=== PATIENT | male | born 1960 | race Caucasian/White ===

== ENCOUNTER 2017-05-14 15:45 | Observation (INO) | payer SELFPAY ==
[~2017-05-14] VITALS: Ht 180.3 cm; Wt 78.1 kg
[2017-05-14 15:45] VITALS: BP 170/70; PULSE 97; RESP 18; TEMP 98.2; O2SAT 98
[~2017-05-14 15:45] MED LIST: ACET325S8 PO; ATEN-100 PO; IBUP600T26 PO; LISI-360 PO; LYRI150C PO; ZOCO40TA PO
[2017-05-14] MEDS ORDERED: IOHEXOL 350 MG/ML 10 ML VIAL (for RAD DIAG) IVCONTRAST ONE (15:46)
--- NOTE | 2017-05-14 16:11 | PD ---
HPI Chief Complaint: syncope Time Seen by Provider: 15:58 Travel History International Travel<30 days: No Contact w/Intl Traveler<30days: No Traveled to known affect area: No History of Present Illness HPI 56-year-old male with history of leukocytosis, CAD, cardiac stents, hypertension , hyperlipidemia, fibromyalgia, chronic back pain with lower extremity weakness , here for evaluation of headache and syncopal episode. The patient reports that he was in his kitchen about to bake something and that is the last thing he remembers. The next thing he remembered he was on the floor. He is unsure how much time he was on the floor for. He was able to call 911 for help. He now complains of lower back pain, neck pain, and headache. Headache is frontal and over his right temporal region. Patient reports that he has a headache almost every day which usually improve with Tylenol and ibuprofen. Shortly after waking up this morning he began to have a headache with gradual onset. Pain is now moderate. Neck pain is also moderate as well as his lower back pain , worse with movements and palpation, constant. He is unsure if he injured his back, however states he also has chronic everyday back pain. No paresthesias. No chest pain or dyspnea. He has had sweats at night, but no documented fever. He complains of some slight blurred vision and photophobia. 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) Immunizations Current: Yes Myocardial Infarction: Yes (X 7) Past Surgical History Appendectomy: Yes Cardiac Surgery: Yes (2 STENTS) Cholecystectomy: Yes Coronary Artery Bypass Graft: No Coronary Stent: Yes (X2) Social History Alcohol Use: No Tobacco Use: Yes (1/2 PPD) Substance Use: No Allergies-Medications (Allergen,Severity, Reaction): Coded Allergies: No Known Allergies (Unverified Adverse Reaction, Unknown, 05/14/17) Reported Meds & Prescriptions Reported Meds & Active Scripts Active Reported Famotidine 10 Mg Tab 10 Mg PO BID Vicodin (Hydrocodone-Acetaminophen) 5-300 Mg Tab 1 Tab PO Q6H PRN Tramadol (Tramadol HCl) 50 Mg Tab 50 Mg PO Q6H PRN Lyrica (Pregabalin) 150 Mg Cap 150 Mg PO BID Ibuprofen 600 Mg Tab 600 Mg PO TID Tylenol (Acetaminophen) 325 Mg Tab 650 Mg PO TID Review of Systems Except as stated in HPI: all other systems reviewed are Neg Physical Exam Narrative GENERAL: Well-developed, well-nourished, awake, alert, keeps eyes closed, no apparent distress. SKIN: Focused skin assessment warm/dry. HEAD: Atraumatic. Normocephalic. EYES: Pupils equal and round. No scleral icterus. No injection or drainage. ENT: Mucous membranes pink and moist. NECK: Trachea midline. No JVD. CARDIOVASCULAR: Regular rate and rhythm. Distal pulses brisk and equal bilaterally. No murmur. RESPIRATORY: No accessory muscle use. Clear to auscultation. Breath sounds equal bilaterally. GASTROINTESTINAL: Abdomen soft, non-tender, nondistended. MUSCULOSKELETAL: No obvious deformities. No clubbing. No cyanosis. No edema. Moderate midline cervical spine and lumbar spine tenderness without step-off. NEUROLOGICAL: Awake and alert. No obvious cranial nerve deficits. Motor grossly within normal limits. Normal speech. No focal deficits. PSYCHIATRIC: Appropriate mood and affect; insight and judgment normal. Data Data Last Documented VS Vital Signs Date Time Temp Pulse Resp B/P (MAP) Pulse Ox O2 Delivery O2 Flow Rate FiO2 05/14/17 16:43 62 18 132/67 (88) 95 Room Air 05/14/17 15:45 98.2 Orders Orders Electrocardiogram (05/14/17 16:04) Complete Blood Count With Diff (05/14/17 16:04) Comprehensive Metabolic Panel (05/14/17 16:04) Ckmb (Isoenzyme) Profile (05/14/17 16:04) Troponin I (05/14/17 16:04) Act Partial Throm Time (Ptt) (05/14/17 16:04) Prothrombin Time / Inr (Pt) (05/14/17 16:04) Urinalysis - C+S If Indicated (05/14/17 16:04) Chest, Single Ap (05/14/17 16:04) Ct Brain W/O Iv Contrast(Rout) (05/14/17 16:04) Ct Cerv Spine W/O Contrast (05/14/17 16:04) Ecg Monitoring (05/14/17 16:04) Iv Access Insert/Monitor (05/14/17 16:04) Oximetry (05/14/17 16:04) Sodium Chloride 0.9% Flush (Ns Flush) (05/14/17 16:15) Ct Thor Spine W/O Contrast (05/14/17 ) Ct Lumb Spine W/O Contrast (05/14/17 ) Ct Pulmonary Angiogram (05/14/17 ) Morphine Inj (Morphine Inj) (05/14/17 16:15) Metoclopramide Inj (Reglan Inj) (05/14/17 16:15) Aspirin Ec (Ecotrin Ec) (05/14/17 17:45) Iohexol 350 Inj (Omnipaque 350 Inj) (05/14/17 15:46) Urine Culture (05/14/17 17:45) Labs Laboratory Tests Test 05/14/17 16:20 05/14/17 17:45 White Blood Count 10.9 TH/MM3 Red Blood Count 3.97 MIL/MM3 Hemoglobin 12.8 GM/DL Hematocrit 38.9 % Mean Corpuscular Volume 98.2 FL Mean Corpuscular Hemoglobin 32.3 PG Mean Corpuscular Hemoglobin Concent 32.8 % Red Cell Distribution Width 11.9 % Platelet Count 210 TH/MM3 Mean Platelet Volume 7.6 FL Neutrophils (%) (Auto) 63.5 % Lymphocytes (%) (Auto) 26.1 % Monocytes (%) (Auto) 6.1 % Eosinophils (%) (Auto) 3.7 % Basophils (%) (Auto) 0.6 % Neutrophils # (Auto) 6.9 TH/MM3 Lymphocytes # (Auto) 2.8 TH/MM3 Monocytes # (Auto) 0.7 TH/MM3 Eosinophils # (Auto) 0.4 TH/MM3 Basophils # (Auto) 0.1 TH/MM3 CBC Comment DIFF FINAL Differential Comment Prothrombin Time 10.1 SEC Prothromb Time International Ratio 0.9 RATIO Activated Partial Thromboplast Time 26.6 SEC Blood Urea Nitrogen 21 MG/DL Creatinine 0.83 MG/DL Random Glucose 100 MG/DL Total Protein 7.7 GM/DL Albumin 3.8 GM/DL Calcium Level 8.5 MG/DL Alkaline Phosphatase 67 U/L Aspartate Amino Transf (AST/SGOT) 19 U/L Alanine Aminotransferase (ALT/SGPT) 26 U/L Total Bilirubin 0.5 MG/DL Sodium Level 141 MEQ/L Potassium Level 4.0 MEQ/L Chloride Level 109 MEQ/L Carbon Dioxide Level 24.3 MEQ/L Anion Gap 8 MEQ/L Estimat Glomerular Filtration Rate 95 ML/MIN Total Creatine Kinase 45 U/L Troponin I LESS THAN 0.02 NG/ML Urine Color YELLOW Urine Turbidity CLEAR Urine pH 6.0 Urine Specific [place] GREATER THAN 1.035 Urine Protein TRACE mg/dL Urine Glucose (UA) NEG mg/dL Urine Ketones NEG mg/dL Urine Occult Blood LARGE Urine Nitrite NEG Urine Bilirubin NEG Urine Leukocyte Esterase NEG Urine RBC 100-200 /hpf Urine WBC 9-14 /hpf Urine Squamous Epithelial Cells 0-5 /hpf Microscopic Urinalysis Comment CULTURE INDICATED MDM Medical Decision Making Medical Screen Exam Complete: Yes Emergency Medical Condition: Yes Medical Record Reviewed: Yes Interpretation(s) EKG: Sinus, rate 94, normal axis, normal intervals, low QRS full digits in precordial leads, no acute ischemic abnormality. Differential Diagnosis Syncope, dysrhythmia, anemia, metabolic abnormality, intracranial abnormality, vertebral injury, PE, ACS Narrative Course 4:45 PM: Patient began complaining of some substernal chest discomfort. Repeat EKG was performed and is unchanged from the first one. Vital signs show heart rate 622, blood pressure 132/67, pulse ox 95% on room air , oral temp of 98.2F. CBC: WBC 10.9, hemoglobin 12.8, hematocrit 38.9, platelets 210. CMP is unremarkable. Cardiac enzymes are negative. CT head: Negative exam. CT cervical spine: Negative trauma CT. CT lumbar spine: Negative trauma study. CT thoracic spine: No acute bony injury. Chest x-ray: No acute disease. CT pulmonary angiogram: CONCLUSION: 1. No evidence of pulmonary embolism. 2. Cardiac stent catheters are present. 3. No confluent infiltrates or effusions. 4. No evidence of fracture. Patient was made aware of all findings. He is resting comfortably. He was given a full aspirin given his chest pain while in the emergency department. Currently he is chest pain-free. States his head and back pain has improved with morphine and Reglan. States his aemt is Dr. Triplett. Given syncope with history of cardiac disease as well as chest pain, the patient will be admitted for overnight observation. Case discussed with hospitalist Dr. Day who will admit the patient to her service. Diagnosis Primary Impression: Syncope Qualified Codes: R55 - Syncope and collapse Additional Impression: Chest pain Qualified Codes: R07.9 - Chest pain, unspecified Admitting Information Admitting Physician Requests: Observation Catrachito Hager MD May 14, 2017 16:11
[2017-05-14] MEDS ORDERED: MORPHINE SULFATE 4 MG/ML INJ IV PUSH ONE (16:15)
[2017-05-14] MEDS ORDERED: METOCLOPRAMIDE HCL 10 MG/2 ML VIAL IV PUSH ONE (16:15)
[2017-05-14] MEDS ORDERED: SODIUM CHLORIDE 0.9% FLUSH 10 ML FLUSH IVF PRN (16:15)
[2017-05-14 16:28] LABS: AUTOMATED NEUTROPHIL # 6.9 TH/MM3 (1.8-7.7); BASOPHIL # 0.1 TH/MM3 (0-0.2); BASOPHIL % 0.6 % (0.0-2.0); EOSINOPHIL # 0.4 TH/MM3 (0-0.4); EOSINOPHIL % 3.7 % (0.0-4.0); HEMATOCRIT 38.9 % (39.0-51.0); HEMO FLAGS DIFF FINAL; LYMPH % 26.1 % (9.0-44.0); LYMPHOCYTE # 2.8 TH/MM3 (1.0-4.8); MEAN CELL VOLUME 98.2 FL (80.0-100.0); MEAN CORPUSCULAR HEMOGLOBIN 32.3 PG (27.0-34.0); MEAN CORPUSCULAR HGB CONC 32.8 % (32.0-36.0); MONO % 6.1 % (0.0-8.0); NEUT % 63.5 % (16.0-70.0); PLATELET COUNT 210 TH/MM3 (150-450); RED BLOOD COUNT 3.97 MIL/MM3 (4.50-5.90); RED CELL DISTRIBUTION WIDTH 11.9 % (11.6-17.2); WHITE BLOOD COUNT 10.9 TH/MM3 (4.0-11.0)
--- NOTE | 2017-05-14 16:29 | RADRPT ---
EXAM DATE/TIME: 05/14/2017 16:14 [facility] COMPARISON: CHEST SINGLE AP, December 26, 2015, 9:51. INDICATIONS : Chest pain and shortness of breath today. MEDICAL HISTORY : Myocardial infarction. Coronary artery disease. Fibromyalgia. SURGICAL HISTORY : Coronary stents. ENCOUNTER: Initial ACUITY: 1 day PAIN SCORE: 4/10 LOCATION: Bilateral chest FINDINGS: 2 AP portable erect views of the chest were obtained and demonstrate the lungs to be symmetrically ae rated without evidence of mass, infiltrate or effusion. The cardiomediastinal contours are unremarka ble. Osseous structures are intact. CONCLUSION: No acute disease. Espinoza Le MD on May 14, 2017 at 16:26 Board Certified Radiologist. This report was verified electronically.
[2017-05-14 16:34] LABS: CHLORIDE 109 MEQ/L (98-107); SODIUM (NA) 141 MEQ/L (136-145)
[2017-05-14] MEDS ORDERED: TYLE325T PO (16:34)
[2017-05-14] MEDS ORDERED: LYRI150C PO (16:34)
[2017-05-14] MEDS ORDERED: IBUP-232 PO (16:34)
[2017-05-14] MEDS ORDERED: HYDR-3111 PO (16:34)
[2017-05-14] MEDS ORDERED: TRAM50TA PO (16:34)
[2017-05-14] MEDS ORDERED: FAMO1TAB30 PO (16:34)
[2017-05-14 16:38] LABS: ANION GAP 8 MEQ/L (5-15); BICARBONATE 24.3 MEQ/L (21.0-32.0); BLOOD UREA NITROGEN 21 MG/DL (7-18)
[2017-05-14 16:40] LABS: APTT (PATIENT) 26.6 SEC (24.3-30.1); INTERNATIONAL NORMALIZED RATIO 0.9 RATIO; PROTHROMBIN TIME - PATIENT 10.1 SEC (9.8-11.6)
[2017-05-14 16:41] LABS: ALT (GPT) 26 U/L (12-78); AST (GOT) 19 U/L (15-37); GLOMERULAR FILTRATION RATE 95 ML/MIN (>89)
[2017-05-14 16:43] VITALS: BP 132/67; PULSE 62; RESP 18; O2SAT 95
[2017-05-14 16:43] LABS: TOTAL BILIRUBIN ADULT 0.5 MG/DL (0.2-1.0)
[2017-05-14 16:44] LABS: ALKALINE PHOSPHATASE 67 U/L (45-117)
[2017-05-14 16:45] LABS: CREATINE KINASE 45 U/L (39-308)
--- NOTE | 2017-05-14 17:20 | RADRPT ---
EXAM DATE/TIME: 05/14/2017 16:53 [facility] COMPARISON: CHEST SINGLE AP, May 14, 2017, 16:14. INDICATIONS : Trauma. Syncopal episode. Cephalgia, neck pain and low back pain. RADIATION DOSE: 66.76 CTDIvol (mGy) ; Tabletop CT Head MEDICAL HISTORY : Gastroesophageal reflux disease. Myocardial infarction. Hypertension.Leukocytosis. SURGICAL HISTORY : Coronary artery stent. ENCOUNTER: Initial ACUITY: 1 day PAIN SCALE: 5/10 LOCATION: Right cranial TECHNIQUE: Multiple contiguous axial images were obtained of the head. Using automated exposure control and adj ustment of the mA and/or kV according to patient size, radiation dose was kept as low as reasonably a chievable to obtain optimal diagnostic quality images. DICOM format image data is available electro nically for review and comparison. FINDINGS: CEREBRUM: The ventricles are normal for age. No evidence of midline shift, mass lesion, hemorrhage or acute in farction. No extra-axial fluid collections are seen. POSTERIOR FOSSA: The cerebellum and brainstem are intact. The 4th ventricle is midline. The cerebellopontine angle i s unremarkable. EXTRACRANIAL: The visualized portion of the orbits is intact. SKULL: The calvaria is intact. No evidence of skull fracture. CONCLUSION: Negative trauma CT Espinoza Le MD on May 14, 2017 at 17:17 Board Certified Radiologist. This report was verified electronically.
--- NOTE | 2017-05-14 17:25 | RADRPT ---
EXAM DATE/TIME: 05/14/2017 16:58 [facility] COMPARISON: No previous studies available for comparison. INDICATIONS : Trauma. Syncopal episode. Evaluate for pulmonary embolism. IV CONTRAST: 75 cc Omnipaque 350 (iohexol) IV RADIATION DOSE: 45 CTDIvol (mGy) MEDICAL HISTORY : Myocardial infarction. Gastroesophageal reflux disease. Hypertension.Leukocytosis. SURGICAL HISTORY : Coronary artery stent. ENCOUNTER: Initial ACUITY: 1 day PAIN SCALE: 0/10 LOCATION: chest TECHNIQUE: Volumetric scanning of the chest was performed using a pulmonary embolism protocol MIP images were re constructed. Using automated exposure control and adjustment of the mA and/or kV according to patien t size, radiation dose was kept as low as reasonably achievable to obtain optimal diagnostic quality images. DICOM format image data is available electronically for review and comparison. Follow-up recommendations for detected pulmonary nodules are based at a minimum on nodule size and pa tient risk factors according to Fleischner Society Guidelines. FINDINGS: PULMONARY ARTERIES: No filling defects are seen in the pulmonary arteries through the segmental level. LUNGS: There is no consolidation or pneumothorax . No concerning pulmonary nodule is visualized. PLEURAE: There is no pleural thickening or pleural effusion. MEDIASTINUM: There is good visualization of the great vessels of the middle mediastinum. No evidence of mediastin al or hilar adenopathy/mass. Cardiac stent catheters. MUSCULOSKELETAL: Within normal limits for patient age. MISCELLANEOUS: The visualized upper abdominal organs demonstrate no acute abnormality. The bony structures are intac t with no evidence of fracture. CONCLUSION: 1. No evidence of pulmonary embolism. 2. Cardiac stent catheters are present. 3. No confluent infiltrates or effusions. 4. No evidence of fracture. Espinoza Le MD on May 14, 2017 at 17:18 Board Certified Radiologist. This report was verified electronically.
--- NOTE | 2017-05-14 17:30 | RADRPT ---
EXAM DATE/TIME: 05/14/2017 16:53 [facility] COMPARISON: No previous studies available for comparison. INDICATIONS : Trauma. Syncopal episode. Cephalgia, neck pain and low back pain. RADIATION DOSE: 26.47 CTDIvol (mGy) MEDICAL HISTORY : Myocardial infarction. Gastroesophageal reflux disease. Hypertension.Leukosytosis. SURGICAL HISTORY : Coronary artery stent. ENCOUNTER: Initial ACUITY: 1 day PAIN SCALE: 5/10 LOCATION: Bilateral neck TECHNIQUE: Volumetric scanning of the cervical spine was performed. Multiplanar reconstructions in the sagittal, coronal and oblique axial planes were performed. Using automated exposure control and adjustment o f the mA and/or kV according to patient size, radiation dose was kept as low as reasonably achievable to obtain optimal diagnostic quality images. DICOM format image data is available electronically f or review and comparison. FINDINGS: The sagittal reconstructions demonstrate normal alignment and normal prevertebral soft tissues. The d ens is intact and there is a normal atlantoaxial relationship. The axial images demonstrate that the vertebral bodies and posterior elements are intact. The soft ti ssues are within normal limits. There is no evidence of acute fracture or malalignment. CONCLUSION: Negative trauma CT. Espinoza Le MD on May 14, 2017 at 17:26 Board Certified Radiologist. This report was verified electronically.
[2017-05-14] MEDS ORDERED: ASPIRIN EC 325 MG TABEC PO ONE (17:45)
[2017-05-14 17:48] LABS: BLOOD, URINE LARGE (NEG); GLUCOSE,URINE NEG (NEG); KETONE, URINE NEG (NEG); NITRITE,URINE NEG (NEG)
--- NOTE | 2017-05-14 17:54 | RADRPT ---
EXAM DATE/TIME: 05/14/2017 16:58 [facility] COMPARISON: CT LUMBAR SPINE W/O CONTRAST, July 19, 2014, 23:37. INDICATIONS : Trauma. Syncopal episode. RADIATION DOSE: 35.64 CTDIvol (mGy) ; Combined studies - Thoracic Spine/Lumbar Spine MEDICAL HISTORY : Myocardial infarction. Gastroesophageal reflux disease. Hypertension.Leukocytosis. SURGICAL HISTORY : Coronary artery stent. ENCOUNTER: Initial ACUITY: 1 day PAIN SCALE: 7/10 LOCATION: Lumbar spine. TECHNIQUE: Volumetric scanning of the lumbar spine was performed. Multiplanar reconstructions in the sagittal, coronal and oblique axial planes were performed. Using automated exposure control and adjustment of the mA and/or kV according to patient size, radiation dose was kept as low as reasonably achievable t o obtain optimal diagnostic quality images. DICOM format image data is available electronically for review and comparison. FINDINGS: VERTEBRAE: Normal vertebral body height. ALIGNMENT: No evidence of subluxation. T12-L1: The thecal sac has a normal diameter. No evidence of disc bulge or protrusion. The neural foramina are patent bilaterally. The axial images demonstrate that the vertebral bodies and posterior elements are intact. There is a mild scoliosis. The visualized portions of the upper sacrum and sacroiliac joints are intact. There i s a mild annular disc bulge at L4-5 with flattening of the anterior thecal sac. CONCLUSION: Negative trauma study. Espinoza Le MD on May 14, 2017 at 17:50 Board Certified Radiologist. This report was verified electronically.
--- NOTE | 2017-05-14 18:01 | RADRPT ---
EXAM DATE/TIME: 05/14/2017 16:58 [facility] COMPARISON: No previous studies available for comparison. INDICATIONS : Trauma. Syncopal episode. Cephalgia, neck pain and low back pain. RADIATION DOSE: 35.64 CTDIvol (mGy) ; Combined studies - Thoracic Spine/Lumbar Spine MEDICAL HISTORY : Myocardial infarction. Gastroesophageal reflux disease. Hypertension.Leukocytosis. SURGICAL HISTORY : Coronary artery stent. ENCOUNTER: Initial ACUITY: 1 day PAIN SCALE: 0/10 LOCATION: Thoracic spine. TECHNIQUE: Volumetric scanning of the thoracic spine was performed. Multiplanar reconstructions in the sagittal , coronal and oblique axial planes were performed. Using automated exposure control and adjustment o f the mA and/or kV according to patient size, radiation dose was kept as low as reasonably achievable to obtain optimal diagnostic quality images. DICOM format image data is available electronically f or review and comparison. FINDINGS: The thoracic spinal alignment is satisfactory. There is no evidence of thoracic spine fracture. No all ny canal or foraminal compromise is noted. There is slight degenerative change with tiny ventral endp late osteophytes at multiple levels in the thoracic spine. There is no evidence of paraspinal hematom a.. CONCLUSION: No acute bony injury in the thoracic spine Robby Lewis MD on May 14, 2017 at 17:57 Board Certified Radiologist. This report was verified electronically.
[2017-05-14 18:07] LABS: URINE COLOR YELLOW (YELLW/STRAW)
[2017-05-14 18:08] LABS: RBC, URINE 100-200 /hpf (0-3)
[2017-05-14 18:09] LABS: COMMENT (UR) CULTURE INDICATED; CULTURE IF INDICATED CULTURE INDICATED; SQUAMOUS EPITHELIAL CELL URINE 0-5 /hpf (0-5)
[2017-05-14 19:02] VITALS: BP 118/72; PULSE 58; RESP 16; O2SAT 96
[2017-05-14] MEDS ORDERED: TEMAZEPAM 15 MG CAP PO PRN (19:15)
[2017-05-14] MEDS ORDERED: SODIUM CHLORIDE 0.9% FLUSH 10 ML FLUSH IV FLUSH PRN (19:15)
[2017-05-14] MEDS ORDERED: NALOXONE HCL 0.4 MG/ML AMP IV PUSH PRN (19:15)
[2017-05-14] MEDS ORDERED: ACETAMINOPHEN/HYDROcodone 325 MG/5 MG TAB PO ONE (19:45)
[2017-05-14 19:48] LABS: CREATINE KINASE 62 U/L (39-308)
[2017-05-14 20:00] VITALS: BP 102/70; PULSE 54; RESP 18; TEMP 96.4; O2SAT 95
[2017-05-14] MEDS ORDERED: cefTRIAXone INJ 1,000 MG in SODIUM CHLORIDE 0.9% INJ 100 ML IV SCH (20:00)
[2017-05-14] MEDS: DOCUSATE SODIUM 50 MG/SENNA 8.6 MG TAB PO SCH (21:05)
[2017-05-14] MEDS: PREGABALIN 75 MG CAP PO SCH (21:05)
[2017-05-14] MEDS: SODIUM CHLORIDE 0.9% FLUSH 10 ML FLUSH IV FLUSH SCH (21:05)
[2017-05-15] VITALS: BP 102/66; PULSE 62; RESP 16; TEMP 97; O2SAT 94
[2017-05-15 02:09] LABS: CREATINE KINASE 65 U/L (39-308)
[2017-05-15] MEDS: ACETAMINOPHEN/HYDROcodone 325 MG/5 MG TAB PO PRN ×3 (06:09→18:43)
[2017-05-15 08:00] VITALS: BP 107/65; PULSE 58; RESP 16; TEMP 96.8; O2SAT 95
[2017-05-15] MEDS: DOCUSATE SODIUM 50 MG/SENNA 8.6 MG TAB PO SCH ×2 (09:00→20:52)
[2017-05-15] MEDS: SODIUM CHLORIDE 0.9% FLUSH 10 ML FLUSH IV FLUSH SCH ×2 (09:23→20:52)
[2017-05-15] MEDS: PREGABALIN 75 MG CAP PO SCH ×2 (09:23→20:52)
[2017-05-15 12:00] VITALS: BP 108/63; PULSE 59; RESP 16; TEMP 96.7; O2SAT 94
--- NOTE | 2017-05-15 13:44 | HHI.HP ---
[facility] Primary Care Physician No Primary Care Physician Admission Diagnosis Syncope, chest pain Diagnoses: (1) Syncope (2) HTN (hypertension) (3) Tobacco abuse (4) Hyperlipidemia Chief Complaint: Syncopal episode Travel History International Travel<30 Days: No Contact w/Intl Traveler <30 Da: No Traveled to Known Affected Are: No History of Present Illness Mr. Baumann is a 56-year-old male patient with a known medical history of CAD with [place] and stent placement, HTN, hyperlipidemia, fibromyalgia and chronic back pain who presented to the ED after a syncopal episode. Patient states that he was baking in the kitchen and fell to the ground. He does not remember any predisposing symptoms, denies any lightheadedness, dizziness or diplopia. Patient states that he woke up in the kitchen and immediately called 911. He denies any incontinence. He is unsure if he hit his head. Does admit to a headache. Denies any recent illness including chest pain, fever, chills, headache, sore throat, shortness of breath, ab pain, n/v/d or dysuria. Denies any new changes to medications, states he does not see a PCP. Does admit to a previous stress test years ago and followed with Dr. Fried but has not seen him for many years. Patient does admit to multiple syncopal episodes in the past with loss of consciousness and also at times incontinence of urine and stool. Has had a neurological work up 10 years ago but nothing since. Patient does complain of recent memory problems and forgetfulness as well as frequent headaches. Review of Systems Constitutional: DENIES: Fever, Chills Eyes: DENIES: Blurred vision Respiratory: DENIES: Cough, Snoring Cardiovascular: COMPLAINS OF: Syncope, DENIES: Chest pain Gastrointestinal: DENIES: Abdominal pain, Constipation, Diarrhea, Nausea, Vomiting Musculoskeletal: COMPLAINS OF: Back pain, Neck pain, DENIES: Joint pain Hematologic/lymphatic: DENIES: Bruising Neurologic: COMPLAINS OF: Headache Psychiatric: DENIES: Anxiety Except as stated in HPI: all other systems reviewed are Neg Past Family Social History Past Medical History CAD with history of [place] x 7 with 2 stent placement Dyslipidemia Chronic tinnitus Fibromyalgia GERD L3, L4, L5 chronic herniated discs with nerve displacement Past Surgical History Appendectomy Cholecystectomy Coronary stent placement x 2 Reported Medications Active Reported Famotidine 10 Mg Tab 10 Mg PO BID Vicodin (Hydrocodone-Acetaminophen) 5-300 Mg Tab 1 Tab PO Q6H PRN Tramadol (Tramadol HCl) 50 Mg Tab 50 Mg PO Q6H PRN Lyrica (Pregabalin) 150 Mg Cap 150 Mg PO BID Ibuprofen 600 Mg Tab 600 Mg PO TID Tylenol (Acetaminophen) 325 Mg Tab 650 Mg PO TID Allergies: Coded Allergies: No Known Allergies (Unverified Allergy, Unknown, 05/14/17) Active Ordered Medications Current Medications Medications (Trade) Dose Ordered Sig/Geovanna Route Start Time Stop Time Status Last Admin (NS Flush) 2 ml UNSCH PRN IV FLUSH 05/14/17 19:15 (NS Flush) 2 ml BID IV FLUSH 05/14/17 21:00 05/15/17 09:23 (Restoril) 15 mg HS PRN PO 05/14/17 19:15 (Narcan Inj) 0.4 mg UNSCH PRN IV PUSH 05/14/17 19:15 (Christie-Colace) 1 tab BID PO 05/14/17 21:00 Ceftriaxone Sodium 1000 mg/ Sodium Chloride 100 ml @ 200 mls/hr Q24H IV 05/14/17 20:00 05/14/17 21:05 (Garnett 5-325 Mg) 1 tab Q6H PRN PO 05/14/17 19:15 05/15/17 12:53 (Lyrica) 150 mg BID PO 05/14/17 21:00 05/15/17 09:23 Family History Patient is not aware of any of his family medical history. Social History Does admit to smoking 5-6 cigarettes per day since the age of 12. Denies any alcohol use. Denies any illicit drug use. Physical Exam Vital Signs Vital Signs Date Time Temp Pulse Resp B/P (MAP) Pulse Ox O2 Delivery O2 Flow Rate FiO2 05/15/17 12:00 96.7 59 16 108/63 (78) 94 05/15/17 08:00 96.8 58 16 107/65 (79) 95 05/15/17 00:00 97.0 62 16 102/66 (78) 94 05/14/17 20:01 56 96 05/14/17 20:00 96.4 54 18 102/70 (81) 95 05/14/17 19:02 58 16 118/72 (87) 96 05/14/17 16:43 62 18 132/67 (88) 95 Room Air 05/14/17 15:45 98 Room Air 05/14/17 15:45 98.2 97 18 170/70 (103) 98 05/14/17 15:45 97 98 Room Air Physical Exam GENERAL: This is a well-nourished, well-developed male patient, lying in bed in no apparent distress. SKIN: No rashes, ecchymoses or lesions. Warm and dry. HEENT: Atraumatic. Normocephalic. Pupils equal round and reactive. Extraocular motions intact. No scleral icterus. No injection or drainage. Nose without bleeding. Airway patent. NECK: Trachea midline. No JVD. Supple. CARDIOVASCULAR: Regular rate and rhythm without murmurs, gallops, or rubs. RESPIRATORY: Clear to auscultation. Breath sounds equal bilaterally. No wheezes , rales, or rhonchi. GASTROINTESTINAL: Abdomen soft, non-tender, nondistended. No guarding. MUSCULOSKELETAL: Extremities without clubbing, cyanosis, or edema. No joint tenderness, effusion, or edema noted. NEUROLOGICAL: Awake and alert. Cranial nerves II through XII intact. Motor and sensory grossly within normal limits. Five out of 5 muscle strength in all muscle groups. Normal speech. Laboratory Laboratory Tests Test 05/14/17 16:20 05/14/17 17:45 05/14/17 19:16 05/15/17 01:30 White Blood Count 10.9 Red Blood Count 3.97 Hemoglobin 12.8 Hematocrit 38.9 Mean Corpuscular Volume 98.2 Mean Corpuscular Hemoglobin 32.3 Mean Corpuscular Hemoglobin Concent 32.8 Red Cell Distribution Width 11.9 Platelet Count 210 Mean Platelet Volume 7.6 Neutrophils (%) (Auto) 63.5 Lymphocytes (%) (Auto) 26.1 Monocytes (%) (Auto) 6.1 Eosinophils (%) (Auto) 3.7 Basophils (%) (Auto) 0.6 Neutrophils # (Auto) 6.9 Lymphocytes # (Auto) 2.8 Monocytes # (Auto) 0.7 Eosinophils # (Auto) 0.4 Basophils # (Auto) 0.1 CBC Comment DIFF FINAL Differential Comment Prothrombin Time 10.1 Prothromb Time International Ratio 0.9 Activated Partial Thromboplast Time 26.6 Blood Urea Nitrogen 21 Creatinine 0.83 Random Glucose 100 Total Protein 7.7 Albumin 3.8 Calcium Level 8.5 Alkaline Phosphatase 67 Aspartate Amino Transf (AST/SGOT) 19 Alanine Aminotransferase (ALT/SGPT) 26 Total Bilirubin 0.5 Sodium Level 141 Potassium Level 4.0 Chloride Level 109 Carbon Dioxide Level 24.3 Anion Gap 8 Estimat Glomerular Filtration Rate 95 Total Creatine Kinase 45 62 65 Troponin I LESS THAN 0.02 LESS THAN 0.02 LESS THAN 0.02 Urine Color YELLOW Urine Turbidity CLEAR Urine pH 6.0 Urine Specific [place] GREATER THAN 1.035 Urine Protein TRACE Urine Glucose (UA) NEG Urine Ketones NEG Urine Occult Blood LARGE Urine Nitrite NEG Urine Bilirubin NEG Urine Leukocyte Esterase NEG Urine RBC 100-200 Urine WBC 9-14 Urine Squamous Epithelial Cells 0-5 Microscopic Urinalysis Comment CULTURE INDICATED Date/Time Source Procedure Growth Status 05/14/17 17:45 Urine Clean Catch Urine Culture - Preliminary NO GROWTH IN 24 HOURS. Resulted Result Diagram: 05/14/17 1620 05/14/17 1620 Imaging Last Impressions Head CT 05/14/17 1604 Signed Impressions: Service Date/Time: April 16:53 - CONCLUSION: Negative trauma CT Espinoza Le MD Chest X-Ray 05/14/17 1604 Signed Impressions: Service Date/Time: April 16:14 - CONCLUSION: No acute disease. Espinoza Le MD Cervical Spine CT 05/14/17 1604 Signed Impressions: Service Date/Time: April 16:53 - CONCLUSION: Negative trauma CT. Espinoza Le MD Thoracic Spine CT 05/14/17 0000 Signed Impressions: Service Date/Time: April 16:58 - CONCLUSION: No acute bony injury in the thoracic spine Robby Lewis MD Lumbar Spine CT 05/14/17 0000 Signed Impressions: Service Date/Time: April 16:58 - CONCLUSION: Negative trauma study. Espinoza Le MD CT Angiography 05/14/17 0000 Signed Impressions: Service Date/Time: April 16:58 - CONCLUSION: 1. No evidence of pulmonary embolism. 2. Cardiac stent catheters are present. 3. No confluent infiltrates or effusions. 4. No evidence of fracture. MD Rishabh Guajardoi VTE Risk Assessment Caprini VTE Risk Assessment: No/Low Risk (score <= 1) Caprini Risk Assessment Model Point Value = 1 Point Value = 2 Point Value = 3 Point Value = 5 Age 41-60 Minor surgery BMI > 25 kg/m2 Swollen legs Varicose veins or History of unexplained or recurrent spontaneous Oral contraceptives or hormone replacement Sepsis (< 1 month) Serious lung disease, including pneumonia (< 1 month) Abnormal pulmonary function Acute myocardial infarction Congestive heart failure (< 1 month) History of inflammatory bowel disease Medical patient at bed rest Age 61-74 Arthroscopic surgery Major open surgery (> 45 min) Laparoscopic surgery (> 45 min) Malignancy Confined to bed (> 72 hours) Immobilizing plaster cast Central venous access Age >= 75 History of VTE Family history of VTE Factor V Leiden Prothrombin [id number] Lupus anticoagulant Anticardiolipin antibodies Elevated serum homocysteine Heparin-induced thrombocytopenia Other congenital or acquired thrombophilia Stroke (< 1 month) Elective arthroplasty Hip, pelvis, or leg fracture Acute spinal cord injury (< 1 month) Prophylaxis Regimen Total Risk Factor Score Risk Level Prophylaxis Regimen 0-1 Low Early ambulation 2 Moderate Order ONE of the following: *Sequential Compression Device (SCD) *Heparin 5000 units SQ BID 3-4 Higher Order ONE of the following medications: *Heparin 5000 units SQ TID *Enoxaparin/Lovenox 40 mg SQ daily (WT < 150 kg, CrCl > 30 mL/min) *Enoxaparin/Lovenox 30 mg SQ daily (WT < 150 kg, CrCl > 10-29 mL/min) *Enoxaparin/Lovenox 30 mg SQ BID (WT < 150 kg, CrCl > 30 mL/min) AND/OR *Sequential Compression Device (SCD) 5 or more Highest Order ONE of the following medications: *Heparin 5000 units SQ TID (Preferred with Epidurals) *Enoxaparin/Lovenox 40 mg SQ daily (WT < 150 kg, CrCl > 30 mL/min) *Enoxaparin/Lovenox 30 mg SQ daily (WT < 150 kg, CrCl > 10-29 mL/min) *Enoxaparin/Lovenox 30 mg SQ BID (WT < 150 kg, CrCl > 30 mL/min) AND *Sequential Compression Device (SCD) Assessment and Plan Problem List: (1) Syncope ICD Code: R55 - Syncope and collapse Status: Acute Plan: Serial EKGs and serial troponins have been ordered for ruling out ACS purposes. Will start on low dose aspirin. ECHO reviewed showing reduced EF 45%. Consult cardiology for BP recommendations, patient's BP is on the lower end, may not tolerate, appreciate recommendations. Also does not have insurance to follow up outpatient. Will obtain orthostatic BPs, monitor trends. Patient may possibly have orthostatic BP which led to his syncope. Follow. Continue cardiac telemetry, monitor for presence of arrhythmias. Complaint of headache, neck pain and back pain since fall, control pain, Garnett available PRN as needed. Continue home Lyrica Lipid profile ordered and pending. EKG reviewed showing NSR heart rate controlled, no ST changes to indicate ischemia. CBC and BMP reviewed which are essentially unremarkable. CXR reviewed showing no acute disease. Head CT, cervical spine CT, lumbar CT, thoracic spine CT all reviewed which was negative. CT angiogram reviewed showing no evidence of PE. No infiltrates or effusions. No fracture. Will consult neurology for frequent syncopal episodes with intermittent incontinence, frequent headaches and forgetfulness. Appreciate recommendations. EEG ordered to rule out possibility of seizures. (2) HTN (hypertension) ICD Code: I10 - Hypertension Status: Acute Plan: BP well controlled. Monitor trends. (3) Hyperlipidemia ICD Code: E78.5 - Hyperlipidemia Status: Acute Plan: Will check lipid panel. Patient is not currently taking anything for dyslipidemia but reports a history of. Follow. (4) Tobacco abuse ICD Code: Z72.0 - Tobacco abuse Status: Acute Plan: Patient counselled and encouraged cessation. DVT prophylaxis: SCDs. (5) Abnormal urinalysis ICD Code: R82.90 - Unspecified abnormal findings in urine Plan: UA showing presence of WBC. Urine culture NGTD. Will dc ceftriaxone. Problem Qualifiers (1) Syncope: Qualified Codes: R55 - Syncope and collapse Marybeth Velasco May 15, 2017 13:44
--- NOTE | 2017-05-15 15:22 | ECHRPT ---
Indication: cad CONCLUSIONS Normal left ventricular size. Wall thickness is normal. The left ventricular systolic function is cbnvwtbg-or-cjpqwuy reduced with an estimated ejection fra ction in the range of 40-45%. Zxvvf-dk-qnie mitral valve regurgitation. There is mild tricuspid valve regurgitation. The estimated pulmonary arterial pressure is 42.7 mmHg. BP: / HR: Rhythm: MEASUREMENTS (Male / Female) Normal Values Technical Quality:Good 2D ECHO LV Diastolic Diameter PLAX 4.6 cm 4.2 - 5.9 / 3.9 - 5.3 cm LV Systolic Diameter PLAX 3.9 cm IVS Diastolic Thickness 0.9 cm 0.6 - 1.0 / 0.6 - 0.9 cm LVPW Diastolic Thickness 0.8 cm 0.6 - 1.0 / 0.6 - 0.9 cm LV Relative Wall Thickness 0.4 RV Internal Dim ED PLAX 3.8 cm LV Ejection Fraction MOD 4C 37.8 % LV Ejection Fraction 4C AL 39.3 % M-MODE Aortic Root Diameter MM 3.3 cm LA Systolic Diameter MM 4.2 cm LA Ao Ratio MM 1.3 AV Cusp Separation MM 2.1 cm DOPPLER Mitral E Point Velocity 61.2 cm/s Mitral A Point Velocity 69.6 cm/s Mitral E to A Ratio 0.9 LV E' Lateral Velocity 10.1 cm/s Mitral E to LV E' Lateral Ratio 6.1 LV E' Septal Velocity 10.5 cm/s Mitral E to LV E' Septal Ratio 5.8 TR Peak Velocity 286.0 cm/s TR Peak Gradient 32.7 mmHg Right Atrial Pressure 10.0 mmHg Pulmonary Artery Systolic Pressu 42.7 mmHg Right Ventricular Systolic Press 42.7 mmHg FINDINGS LEFT VENTRICLE Normal left ventricular size. Wall thickness is normal. The left ventricular systolic function is wathfeuz-do-fotsjgs reduced with an estimated ejection fra ction in the range of 35-40%. RIGHT VENTRICLE Normal right ventricular size and systolic function. LEFT ATRIUM The left atrial size is normal. RIGHT ATRIUM The right atrial size is normal. ATRIAL SEPTUM Normal atrial septal thickness without atrial level shunting by limited color doppler interrogation. AORTA The aortic root and proximal ascending aorta are normal in size on limited imaging. MITRAL VALVE Structurally normal mitral valve. Onnli-il-tocg mitral valve regurgitation. AORTIC VALVE Trileaflet aortic valve. No aortic valve stenosis or regurgitation. TRICUSPID VALVE Structurally normal tricuspid valve. There is mild tricuspid valve regurgitation. The estimated pulmonary arterial pressure is 42.7 mmHg. PULMONARY VALVE No pulmonary valve regurgitation or stenosis. VESSELS The inferior vena cava is normal in size. PERICARDIUM No pericardial effusion. Jose Turner MD (Electronically Signed) Final Date:15 May 2017 15:20
[2017-05-15 16:00] VITALS: BP_SYST 106; BP_SYST 108; BP_SYST 120; BP_DIAS 60; BP_DIAS 66; BP_DIAS 68; PULSE 59; RESP 14; TEMP 97.1; O2SAT 95
--- NOTE | 2017-05-15 16:19 | EKG ---
Date Performed: 05/14/2017 Time Performed: 15:53:08 PTAGE: 56 years EKG: Sinus rhythm LOW QRS VOLTAGE IN PRECORDIAL LEADS Since previous tracing, no significant change noted BORDERLINE E CG PREVIOUS TRACING : 12/26/2015 15.51 DOCTOR: Megha Alexandra Interpretating Date/Time 05/15/2017 16:18:43
--- NOTE | 2017-05-15 16:21 | EKG ---
Date Performed: 05/14/2017 Time Performed: 16:45:04 PTAGE: 56 years EKG: Sinus rhythm POSSIBLE RIGHT VENTRICULAR CONDUCTION DELAY Since previous tracing, no significant change noted GISELE FERRER ECG PREVIOUS TRACING : 05/14/2017 15.53 DOCTOR: Megha Alexandra Interpretating Date/Time 05/15/2017 16:19:55
[2017-05-15 17:07] LABS: HDL CHOLESTEROL 25.3 MG/DL (40.0-60.0)
--- NOTE | 2017-05-15 17:13 | PD.CONS ---
HPI Consult Requested By Primary Care Physician No Primary Care Physician History of Present Illness 56-year-old male patient with a known medical history of CAD with [place] and stent placement, HTN, hyperlipidemia, fibromyalgia and chronic back pain who presented to the ED after a syncopal episode. Patient states that he was baking in the kitchen and fell to the ground. He does not remember any predisposing symptoms, denies any lightheadedness, dizziness or diplopia. Patient states that he woke up in the kitchen and immediately called 911. He denies any incontinence. He is unsure if he hit his head. Does admit to a headache. Denies any recent illness including chest pain, fever, chills, headache, sore throat, shortness of breath, ab pain, n/v/d or dysuria. Denies any new changes to medications, states he does not see a PCP. Does admit to a previous stress test years ago and followed with Dr. Fried but has not seen him for many years. Patient does admit to multiple syncopal episodes in the past with loss of consciousness and also at times incontinence of urine and stool. Has had a neurological work up 10 years ago but nothing since. Patient does complain of recent memory problems and forgetfulness as well as frequent headaches. Review of Systems Consitutional: DENIES: Fatigue, Fever, Chills, Weight gain, Weight loss Eyes: DENIES: Amaurosis Fugax, Change in vision HEENT: DENIES: Lightheadedness, Change in hearing Respiratory: DENIES: See HPI, Cough, Snoring, Shortness of breath, Wheezing, Sputum production Cardiovascular: DENIES: See HPI, Chest pain, Palpitations, Syncope, Tachycardia Gastrointestinal: DENIES: Nausea, Vomiting, Change in bowel habits, Reflux, Bloody stools, Melena Genitourinary: DENIES: Urinary incontinence, Difficulty voiding Integumentary: DENIES: Rash Neurologic: DENIES: Tingling or numbness, Memory problems, Poor Balance, Stroke symptoms Musculoskeletal: DENIES: Joint pain, Muscle pain, Limited range of motion, Back pain Psychiatric: DENIES: Anxiety, Depression, Sleep disturbances Hematologic: DENIES: Bruising tendencies, Bleeding tendencies Endocrine: DENIES: Weight gain, Weight loss, Thyroid disease Past Family Social History Allergies: Coded Allergies: No Known Allergies (Unverified Allergy, Unknown, 05/14/17) Past Medical History CAD with history of [place] x 7 with 2 stent placement Dyslipidemia Chronic tinnitus Fibromyalgia GERD L3, L4, L5 chronic herniated discs with nerve displacement Past Surgical History Appendectomy Cholecystectomy Coronary stent placement x 2 Reported Medications Reported Meds & Active Scripts Active Reported Famotidine 10 Mg Tab 10 Mg PO BID Vicodin (Hydrocodone-Acetaminophen) 5-300 Mg Tab 1 Tab PO Q6H PRN Tramadol (Tramadol HCl) 50 Mg Tab 50 Mg PO Q6H PRN Lyrica (Pregabalin) 150 Mg Cap 150 Mg PO BID Ibuprofen 600 Mg Tab 600 Mg PO TID Tylenol (Acetaminophen) 325 Mg Tab 650 Mg PO TID Active Ordered Medications Current Medications Medications (Trade) Dose Ordered Sig/Geovanna Route Start Time Stop Time Status Last Admin (NS Flush) 2 ml UNSCH PRN IV FLUSH 05/14/17 19:15 (NS Flush) 2 ml BID IV FLUSH 05/14/17 21:00 05/15/17 09:23 (Restoril) 15 mg HS PRN PO 05/14/17 19:15 (Narcan Inj) 0.4 mg UNSCH PRN IV PUSH 05/14/17 19:15 (Christie-Colace) 1 tab BID PO 05/14/17 21:00 (Caro 5-325 Mg) 1 tab Q6H PRN PO 05/14/17 19:15 05/15/17 12:53 (Lyrica) 150 mg BID PO 05/14/17 21:00 05/15/17 09:23 (Aspirin Chew) 81 mg DAILY CHEW 05/15/17 14:00 Family History Patient is not aware of any of his family medical history. Social History Does admit to smoking 5-6 cigarettes per day since the age of 12. Denies any alcohol use. Denies any illicit drug use. Physical Exam Vital Signs Vital Signs Date Time Temp Pulse Resp B/P (MAP) Pulse Ox O2 Delivery O2 Flow Rate FiO2 05/15/17 16:00 97.1 59 14 120/66 (84) 95 106/60 (75) 108/68 (81) 05/15/17 14:26 14 05/15/17 12:00 96.7 59 16 108/63 (78) 94 05/15/17 08:00 96.8 58 16 107/65 (79) 95 05/15/17 00:00 97.0 62 16 102/66 (78) 94 05/14/17 20:01 56 96 05/14/17 20:00 96.4 54 18 102/70 (81) 95 05/14/17 19:02 58 16 118/72 (87) 96 Physical Exam GENERAL: Well-nourished, well-developed patient. SKIN: Warm and dry. HEAD: Normocephalic. EYES: No scleral icterus. No injection or drainage. NECK: Supple, trachea midline. No JVD or lymphadenopathy. CARDIOVASCULAR: Regular rate and rhythm without murmurs, gallops, or rubs. RESPIRATORY: Breath sounds equal bilaterally. No accessory muscle use. GASTROINTESTINAL: Abdomen soft, non-tender, nondistended. EXTREMITIES: No cyanosis, or edema. NEUROLOGICAL: Awake, alert, and oriented x 3. Non-focal. Laboratory Laboratory Tests Test 05/14/17 17:45 05/14/17 19:16 05/15/17 01:30 Urine Color YELLOW Urine Turbidity CLEAR Urine pH 6.0 Urine Specific [place] GREATER THAN 1.035 Urine Protein TRACE Urine Glucose (UA) NEG Urine Ketones NEG Urine Occult Blood LARGE Urine Nitrite NEG Urine Bilirubin NEG Urine Leukocyte Esterase NEG Urine RBC 100-200 Urine WBC 9-14 Urine Squamous Epithelial Cells 0-5 Microscopic Urinalysis Comment CULTURE INDICATED Total Creatine Kinase 62 65 Troponin I LESS THAN 0.02 LESS THAN 0.02 Date/Time Source Procedure Growth Status 05/14/17 17:45 Urine Clean Catch Urine Culture - Preliminary NO GROWTH IN 24 HOURS. Resulted Result Diagram: 05/14/17 1620 05/14/17 1620 Imaging Last Impressions Head CT 05/14/17 1604 Signed Impressions: Service Date/Time: April 16:53 - CONCLUSION: Negative trauma CT Espinoza Le MD Chest X-Ray 05/14/17 1604 Signed Impressions: Service Date/Time: April 16:14 - CONCLUSION: No acute disease. Espinoza Le MD Cervical Spine CT 05/14/17 1604 Signed Impressions: Service Date/Time: April 16:53 - CONCLUSION: Negative trauma CT. Espinoza Le MD Thoracic Spine CT 05/14/17 0000 Signed Impressions: Service Date/Time: April 16:58 - CONCLUSION: No acute bony injury in the thoracic spine Robby Lewis MD Lumbar Spine CT 05/14/17 0000 Signed Impressions: Service Date/Time: April 16:58 - CONCLUSION: Negative trauma study. Espinoza Le MD CT Angiography 05/14/17 0000 Signed Impressions: Service Date/Time: April 16:58 - CONCLUSION: 1. No evidence of pulmonary embolism. 2. Cardiac stent catheters are present. 3. No confluent infiltrates or effusions. 4. No evidence of fracture. Espinoza Le MD Assessment and Plan Problem List: (1) Syncope ICD Codes: R55 - Syncope and collapse Status: Acute Plan: 56 y/o M consulted for syncope. No CV complaints, no chest pain, sob, pnd or leg edema. Negative Cardiac Markers. Unremarkable EKG. 2Decho done today shows low EF. Pt has hx of CAD and stents with several RI's in the past. He at least 3 MPI in the system suggesting low EF and fixed defects. No tachy or bradyarrhythmias on telemetry. Regarding his low EF, he should definitely be on ASA mindful of hematuria, hold BB given bradycardia, ACEi, and statins. Recommendations: 1. 48hr Holter monitor 2. Cont home medications for CAD 3. No driving 4. Neuro evaluation 5. Toxicology screen 6. TSH, Free T3 and T4 7. Follow up with Cardiology upon discharge 8. ASA, no BB given bradycardia, ACEi and statins Thank you for the opportunity to participate in the care of this patient (2) Hx of coronary artery disease ICD Codes: Z86.79 - Personal history of other diseases of the circulatory system Status: Acute (3) Back pain ICD Codes: M54.9 - Back pain Status: Acute (4) Hyperlipidemia ICD Codes: E78.5 - Hyperlipidemia Status: Acute (5) Tobacco abuse ICD Codes: Z72.0 - Tobacco abuse Status: Acute (6) HTN (hypertension) ICD Codes: I10 - Hypertension Status: Acute (7) Abnormal urinalysis ICD Codes: R82.90 - Unspecified abnormal findings in urine Problem Qualifiers (1) Syncope: Qualified Codes: R55 - Syncope and collapse Jose Turner MD May 15, 2017 17:13
[2017-05-15] MEDS: ASPIRIN 81 MG CHEW TAB CHEW SCH (17:22)
[2017-05-15] MEDS ORDERED: ATORVASTATIN 20 MG TAB PO SCH (21:00)
[2017-05-15] MEDS ORDERED: ACETAMINOPHEN 325 MG TAB PO PRN (23:00)
[2017-05-16] VITALS: BP 110/76; PULSE 61; RESP 16; TEMP 97.9; O2SAT 95
[2017-05-16 04:00] VITALS: BP 108/74; PULSE 57; RESP 17; TEMP 98; O2SAT 96
[2017-05-16 07:50] VITALS: BP 111/64; PULSE 58; RESP 20; TEMP 97.5; O2SAT 58
[2017-05-16] MEDS ORDERED: LISINOPRIL 10 MG TAB PO SCH (09:00)
[2017-05-16] MEDS: DOCUSATE SODIUM 50 MG/SENNA 8.6 MG TAB PO SCH (09:10)
[2017-05-16] MEDS: ASPIRIN 81 MG CHEW TAB CHEW SCH (09:10)
[2017-05-16] MEDS: SODIUM CHLORIDE 0.9% FLUSH 10 ML FLUSH IV FLUSH SCH (09:11)
[2017-05-16] MEDS: PREGABALIN 75 MG CAP PO SCH (09:11)
[2017-05-16] MEDS: ACETAMINOPHEN/HYDROcodone 325 MG/5 MG TAB PO PRN (09:11)
--- NOTE | 2017-05-16 10:01 | PD.CONS ---
History of Present Illness Service Neurology Consult Requested By med Reason for Consult syncope Primary Care Physician No Primary Care Physician History of Present Illness 56-year-old male admitted for syncope. seen by medical and cardiology. has been having passing out episodes, 3-4 over the past year. no aura/warning. his boyfriend, at bedside, states he is lethargic afterwards. may have incontinence. no jerking. can occur in any position. no hx of tia/stroke/head trauma/concussion. partner has noticed the pt to have problems with memory. can be absent minded and inattentive. the pt knows little of his family hx. 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 denies etoh intake. 07/[address] brain naicp. Review of Systems as above and admit hp Past Family Social History Past Medical History CAD with stent Dyslipidemia Chronic tinnitus Fibromyalgia GERD lumbar herniated discs Past Surgical History Appendectomy Cholecystectomy Reported Medications Active Reported Famotidine 10 Mg Tab 10 Mg PO BID Vicodin (Hydrocodone-Acetaminophen) 5-300 Mg Tab 1 Tab PO Q6H PRN Tramadol (Tramadol HCl) 50 Mg Tab 50 Mg PO Q6H PRN Lyrica (Pregabalin) 150 Mg Cap 150 Mg PO BID Ibuprofen 600 Mg Tab 600 Mg PO TID Tylenol (Acetaminophen) 325 Mg Tab 650 Mg PO TID Allergies: Coded Allergies: No Known Allergies (Unverified Allergy, Unknown, 05/14/17) Family History Patient is not aware of any of his family medical history. Social History Does admit to smoking 5-6 cigarettes per day since the age of 12. Denies any alcohol use. Denies any illicit drug use. Review of Systems All other ROS: ROS reviewed as documented in chart Past Family Social History Allergies: Coded Allergies: No Known Allergies (Unverified Allergy, Unknown, 05/14/17) Active Ordered Medications Current Medications Medications (Trade) Dose Ordered Sig/Geovanna Route Start Time Stop Time Status Last Admin (NS Flush) 2 ml UNSCH PRN IV FLUSH 05/14/17 19:15 (NS Flush) 2 ml BID IV FLUSH 05/14/17 21:00 05/16/17 09:11 (Restoril) 15 mg HS PRN PO 05/14/17 19:15 05/15/17 20:52 (Narcan Inj) 0.4 mg UNSCH PRN IV PUSH 05/14/17 19:15 (Christie-Colace) 1 tab BID PO 05/14/17 21:00 05/16/17 09:10 (Novinger 5-325 Mg) 1 tab Q6H PRN PO 05/14/17 19:15 05/16/17 09:11 (Lyrica) 150 mg BID PO 05/14/17 21:00 05/16/17 09:11 (Aspirin Chew) 81 mg DAILY CHEW 05/15/17 14:00 05/16/17 09:10 (Lipitor) 20 mg HS PO 05/15/17 21:00 05/15/17 20:52 (Prinivil) 10 mg DAILY PO 05/16/17 09:00 05/16/17 09:10 (Tylenol) 650 mg Q4H PRN PO 05/15/17 23:00 Exam I&O / VS Vital Signs Date Time Temp Pulse Resp B/P (MAP) Pulse Ox O2 Delivery O2 Flow Rate FiO2 05/16/17 07:50 97.5 58 20 111/64 (80) 58 05/16/17 04:00 98.0 57 17 108/74 (85) 96 05/16/17 00:00 97.9 61 16 110/76 (87) 95 05/15/17 16:00 97.1 59 14 120/66 (84) 95 106/60 (75) 108/68 (81) 05/15/17 14:26 14 05/15/17 12:00 96.7 59 16 108/63 (78) 94 General: Alert and Oriented, No acute distress Eye: EOMI Respiratory: Non-labored respirations Neurologic: Alert, Oriented, Normal sensory, Normal motor, No focal defects, CN II-XII intact, Gag reflex normal Psychiatric: Cooperative, Appropriate mood & affect, Normal judgement, Non- suicidal Exam Comments ox 3, pleasant, follows, calm. cn2-12 intact, no focal weakness, able to ambulate well, tandem 4-5 steps. romberg negative Review/Management Diagnosis/Plan: (1) Syncope ICD Codes: R55 - Syncope and collapse Status: Acute Plan: etiology: vasovagal vs sz vs arrhythmia minimally orthostatic one one set event monitor/cardio following recs check b12, rpr, f/u thyroid studies stop tramadol- can cause sz's f/u eeg, mri/mra brain hydration f/u outpatient of tests and further cognitive testing no driving/swimming alone/climbing heights/operating dangerous machinery x 6 months of being syncope free Problem Qualifiers (1) Syncope: Qualified Codes: R55 - Syncope and collapse James Vaz MD May 16, 2017 10:01
[2017-05-16 10:10] LABS: FREE T3 2.62 PG/ML (2.18-3.98); FREE T4 1.01 NG/DL (0.76-1.46)
--- NOTE | 2017-05-16 11:14 | RADRPT ---
EXAM DATE/TIME: 05/16/2017 11:06 [facility] COMPARISON: No previous studies available for comparison. INDICATIONS : Syncope. MEDICAL HISTORY : Cardiovascular disease SURGICAL HISTORY : Appendectomy. Cholecystectomy. Coronary artery stent. ENCOUNTER: Initial ACUITY: 1 day PAIN SCORE: 0/10 LOCATION: cranial Please note a normal MRA of the brain does not entirely exclude the possibility of a small aneurysm, nor the possibility of distal intracranial vessel disease. TECHNIQUE: 3D time of flight MRA was performed. Source images, multiplanar STS MIP, and 3D volume MIP reconstru ctions were reviewed. FINDINGS: There is excellent visualization of the major intracranial arteries out to the second-order branch ve ssels. There is no evidence for aneurysm, vessel truncation or stenosis, and no evidence for vascula r malformation. Anterior communicating artery. Posterior communicating artery is not seen. The middle , anterior and posterior cerebral arteries are patent. Cojoined anterior cerebral artery, normal vari ant. CONCLUSION: 1. No large vessel stenosis, aneurysm or thrombus. 2. Normal variance as described above. Cristopher Caputo MD on May 16, 2017 at 11:09 Board Certified Radiologist. This report was verified electronically.
--- NOTE | 2017-05-16 11:20 | RADRPT ---
EXAM DATE/TIME: 05/16/2017 11:06 [facility] COMPARISON: CT BRAIN W/O CONTRAST, May 14, 2017, 16:53. INDICATIONS : Syncope. MEDICAL HISTORY : Cardiovascular disease SURGICAL HISTORY : Appendectomy. Cholecystectomy. Cardiac stent. ENCOUNTER: Initial ACUITY: 3 day PAIN SCORE: 0/10 LOCATION: cranial TECHNIQUE: Multiplanar, multisequence MRI of the brain was performed without contrast. FINDINGS: CEREBRUM: The ventricles are normal for age. No evidence of midline shift, mass lesion, hemorrhage or acute in farction. No extraaxial fluid collections are seen. The pituitary gland and suprasellar cistern are normal in configuration. WHITE MATTER: Single focal area of bright T2 signal abnormality seen within the left parietal lobe. POSTERIOR FOSSA: The cerebellum and brainstem are intact. The 4th ventricle is midline. The cerebellopontine angle is unremarkable. The cerebellar tonsils are normal in position. DIFFUSION IMAGING: No focal areas of restricted diffusion are seen. No evidence of acute infarction. EXTRACRANIAL: The visualized portions of the orbits and unremarkable. Scattered sinus disease. CONCLUSION: 1. Nonspecific white matter changes left parietal lobe otherwise unremarkable MRI of the brain. Cristopher Caputo MD on May 16, 2017 at 11:16 Board Certified Radiologist. This report was verified electronically.
[2017-05-16 11:50] VITALS: BP 129/78; PULSE 62; RESP 20; TEMP 98.9; O2SAT 94
--- NOTE | 2017-05-16 12:50 | HHI.PR ---
Subjective Remarks Follow up syncopal episode. Patient seen and examined, at bedside. Patient is lying in bed comfortably. Denies any acute events overnight. Denies any chest pain or dizziness. Patient has been eating well. Objective Vitals Vital Signs Date Time Temp Pulse Resp B/P (MAP) Pulse Ox O2 Delivery O2 Flow Rate FiO2 05/16/17 11:50 98.9 62 20 129/78 (95) 94 05/16/17 10:12 14 05/16/17 10:12 14 05/16/17 07:50 97.5 58 20 111/64 (80) 58 05/16/17 04:00 98.0 57 17 108/74 (85) 96 05/16/17 00:00 97.9 61 16 110/76 (87) 95 05/15/17 16:00 97.1 59 14 120/66 (84) 95 106/60 (75) 108/68 (81) I/O 05/15/17 05/15/17 05/15/17 05/16/17 05/16/17 05/16/17 07:00 15:00 23:00 07:00 15:00 23:00 Intake Total 480 ml 702 ml 480 ml Output Total 375 ml 300 ml 1000 ml Balance 480 ml 327 ml 180 ml -1000 ml Intake Oral 480 ml 702 ml 480 ml Output Urine Total 375 ml 300 ml 1000 ml # Voids 2 # Bowel Movements 0 0 Result Diagram: 05/14/17 1620 05/14/17 1620 Imaging Last Impressions Head Magnetic Resonance Angiography 05/16/17 0000 Signed Impressions: Service Date/Time: Tuesday, May 16, 2017 11:06 - CONCLUSION: 1. No large vessel stenosis, aneurysm or thrombus. 2. Normal variance as described above. Cristopher Caputo MD Brain MRI 05/16/17 0000 Signed Impressions: Service Date/Time: Tuesday, May 16, 2017 11:06 - CONCLUSION: 1. Nonspecific white matter changes left parietal lobe otherwise unremarkable MRI of the brain. Cristopher Caputo MD Head CT 05/14/17 1604 Signed Impressions: Service Date/Time: April 16:53 - CONCLUSION: Negative trauma CT Espinoza Le MD Chest X-Ray 05/14/17 1604 Signed Impressions: Service Date/Time: April 16:14 - CONCLUSION: No acute disease. Espinoza Le MD Cervical Spine CT 05/14/17 1604 Signed Impressions: Service Date/Time: April 16:53 - CONCLUSION: Negative trauma CT. Espinoza Le MD Thoracic Spine CT 05/14/17 0000 Signed Impressions: Service Date/Time: April 16:58 - CONCLUSION: No acute bony injury in the thoracic spine Robby Lewis MD Lumbar Spine CT 05/14/17 0000 Signed Impressions: Service Date/Time: April 16:58 - CONCLUSION: Negative trauma study. Espinoza Le MD CT Angiography 05/14/17 0000 Signed Impressions: Service Date/Time: April 16:58 - CONCLUSION: 1. No evidence of pulmonary embolism. 2. Cardiac stent catheters are present. 3. No confluent infiltrates or effusions. 4. No evidence of fracture. Espinoza Le MD Objective Remarks GENERAL: This is a well-nourished, well-developed male patient, lying in bed in no apparent distress. SKIN: No rashes, ecchymoses or lesions. Warm and dry. HEENT: Atraumatic. Normocephalic. Pupils equal round and reactive. Extraocular motions intact. No scleral icterus. No injection or drainage. Nose without bleeding. Airway patent. NECK: Trachea midline. No JVD. Supple. CARDIOVASCULAR: Regular rate and rhythm without murmurs, gallops, or rubs. RESPIRATORY: Clear to auscultation. Breath sounds equal bilaterally. No wheezes , rales, or rhonchi. GASTROINTESTINAL: Abdomen soft, non-tender, nondistended. No guarding. MUSCULOSKELETAL: Extremities without clubbing, cyanosis, or edema. No joint tenderness, effusion, or edema noted. NEUROLOGICAL: Awake and alert. Cranial nerves II through XII intact. Motor and sensory grossly within normal limits. Five out of 5 muscle strength in all muscle groups. Normal speech. A/P Problem List: (1) Syncope ICD Code: R55 - Syncope and collapse Status: Acute Plan: Serial EKGs and serial troponins have been ordered for ruling out ACS purposes. Will start on low dose aspirin. ECHO reviewed showing reduced EF 45%. Cardiology has seen patient with recommendations for Holter, ASA and Acei and statin, no recs for BB due to bradycardia. Orthostatics were mildly positive. Neurology has seen patient with MRI orders, reviewed which are essentially unremarkable. Will await EEG results. Thyroid function tests were are unremarkable. Continue cardiac telemetry, monitor for presence of arrhythmias. Complaint of headache, neck pain and back pain since fall, control pain, [place] available PRN as needed. Continue home Lyrica Lipid panel reviewed showing elevation in triglycerides. Awaiting B12 level. Ammonia WNL. RPR is pending. EKG reviewed showing NSR heart rate controlled, no ST changes to indicate ischemia. CBC and BMP reviewed which are essentially unremarkable. CXR reviewed showing no acute disease. Head CT, cervical spine CT, lumbar CT, thoracic spine CT all reviewed which was negative. CT angiogram reviewed showing no evidence of PE. No infiltrates or effusions. No fracture. (2) HTN (hypertension) ICD Code: I10 - Hypertension Status: Acute Plan: BP well controlled. Monitor trends. (3) Hyperlipidemia ICD Code: E78.5 - Hyperlipidemia Status: Acute Plan: Lipid panel reviewed showing elevated triglycerides. Placed on statin. (4) Tobacco abuse ICD Code: Z72.0 - Tobacco abuse Status: Acute Plan: Patient counselled and encouraged cessation. (5) Abnormal urinalysis ICD Code: R82.90 - Unspecified abnormal findings in urine Plan: UA showing presence of WBC. Urine culture NGTD. Will dc ceftriaxone. Problem Qualifiers (1) Syncope: Qualified Codes: R55 - Syncope and collapse Marybeth Velasco May 16, 2017 12:50
[2017-05-16] MEDS ORDERED: LISI10TA3 PO (13:31)
[2017-05-16] MEDS ORDERED: ATOR20TA15 PO (13:31)
[2017-05-16] MEDS ORDERED: ASPI81 CHEW (13:31)
--- NOTE | 2017-05-16 13:33 | HHI.DCPOC ---
Discharge Care Plan Diagnosis: (1) Syncope (2) Hyperlipidemia Additional Problems return holter monitor Goals to Promote Your Health * To prevent worsening of your condition and complications * To maintain your health at the optimal level Directions to Meet Your Goals Take your medications as prescribed Follow your dietary instruction Follow activity as directed Keep your appointments as scheduled Take your immunizations and boosters as scheduled If your symptoms worsen call your PCP, if no PCP go to Urgent Care Center or Emergency Room Smoking is Dangerous to Your Health. Avoid second hand smoke Call the 24-hour hour crisis hotline for domestic abuse at [place] Day MD May 16, 2017 13:33
--- NOTE | 2017-05-17 07:45 | MG ---
cc: SRIKANTH SHAFFER MD Sex: M DATE OF STUDY: 05/16/2017 EEG: [address]O. [address]014 DATE OF : 1960 HISTORY: 56-year-old, history of syncopal episodes. DESCRIPTION: Increased fast frequencies noted. Background alpha and beta frequencies, 8 to 12 hertz posterior rhythm. Frontal beta, good EEG variability reactivity. Good driving with photic stimulation followed by some myogenic ___kinetic slow artifact. Attenuation in background slowing with transition into drowsy state. Single lead EKG showing sinus rhythm. INTERPRETATION Normal awake drowsy EEG. Clinical correlation. Srikanth Shaffer MD MG/GORGE /12:00 AM /7:11 AM
--- NOTE | 2017-05-19 22:36 | HM ---
Date Performed: 05/16/2017 Time Performed: 15:53:00 HOOKUP DATE: 05/16/17 03:53:00 PM Sat ANALYSIS START TIME: 05/16/2017 3:58:00 PM ANALYSIS END TIME: 05/17/2017 4:02:00 PM PATIENT AGE: 56 PATIENT HEIGHT PATIENT WEIGHT DRUG LIST PATIENT DIAGNOSIS: syncope chest pain TEST NARRATIVE: The patient's average heart rate was 76 BPM. Heart rates greater than 120 B PM were noted 2% of the time. Heart rates less than 50 BPM were noted 4% of the time. No pauses exceeding 2.0 seconds were noted. 2 ventricular ectopics, which represented < 1% of the total dena t count, were noted. The highest ventricular ectopic frequency occurred from 05:00 PM to 06:00 PM Sa t. During this time 1 VE(s) occurred. Ventricular ectopics were observed as 2 isolated beat(s) only . No couplets or runs were noted. 1 supraventricular ectopics, which represented < 1% of the tot al beat count, were noted. The highest supraventricular ectopic frequency occurred from 01:00 AM to 02:00 AM Sun. During this time 1 SVE(s) occurred. No episodes of ST depression (defined as -1.0 mm or more) were noted in channel 1. No episodes of ST depression (defined as -1.0 mm or more) were noted in channel 2. No episodes of ST depression (defined as -1.0 mm or more) were noted in channel 3. no diary returned TEST INTERPRETATION: Sinus rhythm Sinus tachycardia Rare PACs and PVCs Signed by : Jami Means
== END 2017-05-16 16:02 | disposition home or self-care (01) ==
LOC: PHED 15:45 → PHEDA 18:21 → PH3A 19:57
PROVIDERS: ADMIT Hospitalist; ATTEND Hospitalist
DX: R55 Syncope and collapse (principal); R51 Headache; R32 Unspecified urinary incontinence; M54.2 Cervicalgia; R07.9 Chest pain, unspecified; R00.1 Bradycardia, unspecified; I25.10 Atherosclerotic heart disease of native coronary artery without angina pectoris; I10 Essential (primary) hypertension; E78.00 Pure hypercholesterolemia, unspecified; E78.1 Pure hyperglyceridemia; R82.90 Unspecified abnormal findings in urine; I25.2 Old myocardial infarction; M79.7 Fibromyalgia; K21.9 Gastro-esophageal reflux disease without esophagitis; M54.5 Low back pain; G89.29 Other chronic pain; H91.90 Unspecified hearing loss, unspecified ear; M51.26 Other intervertebral disc displacement, lumbar region; F17.210 Nicotine dependence, cigarettes, uncomplicated; Z79.899 Other long term (current) drug therapy; Z95.5 Presence of coronary angioplasty implant and graft; W19.XXXA Unspecified fall, initial encounter
CPT/HCPCS: 70450; 70544; 70551; 71010; 71275; 72125; 72128; 72131; 80053; 80061; 81001; 82140; 82550; 82607; 84439; 84443; 84481; 84484; 85025; 85610; 85730; 86592; 86593; 86780; 87086; 93005; 93225; 93226; 93306; 95819; 96365; 96375; 99285; G0378; J0696; J2270; J2765; Q9967

== ENCOUNTER 2017-10-15 18:58 | Inpatient (IN) | payer SELFPAY ==
[2017-10-15] VITALS (7 sets, daily range): BP systolic 106–133; BP diastolic 64–73; PULSE 85–95; RESP 14–20; TEMP 99.8–101.4; O2SAT 92–95
[~2017-10-15] VITALS: Ht 182.9 cm; Wt 79.2 kg
[~2017-10-15 18:58] MED LIST changes: -ACET325S8 PO; +ASPI81 CHEW; -ATEN-100 PO; +ATOR20TA15 PO; +FAMO1TAB30 PO; +HYDR-3111 PO; -IBUP600T26 PO; -LISI-360 PO; +LISI10TA3 PO; +TRAM50TA PO; +TYLE325T PO; -ZOCO40TA PO
[2017-10-15] MEDS ORDERED: SODIUM CHLOR 0.9% 1000 ML INJ 1,000 ML IV ONE (19:34)
[2017-10-15] MEDS ORDERED: SODIUM CHLOR 0.9% 1000 ML INJ 800 ML IV ONE (19:34)
--- NOTE | 2017-10-15 19:40 | PD ---
HPI Chief Complaint: ENT Complaint Time Seen by Provider: 19:30 Travel History International Travel<30 days: No Contact w/Intl Traveler<30days: No Traveled to known affect area: No History of Present Illness HPI 57-year-old male with history of hypertension, hyperlipidemia, leukocytosis, here for evaluation of sore throat and chills. Symptoms started 2 days ago and have been progressively worsening. Pain is severe, constant, worse with swallowing. He is able to swallow liquids, however is unable to swallow foods. He has not checked his temperature at home, but does have chills. No vomiting or diarrhea. No cough. PFSH Past Medical History Arthritis: Yes (osteoarthritis) Anxiety: No Depression: No Heart Rhythm Problems: No Cancer: No Cardiac Catheterization: Yes Cardiovascular Problems: Yes (HX [place]) High Cholesterol: Yes Chest Pain: Yes Congestive Heart Failure: No Cerebrovascular Accident: No Coronary Artery Disease: Yes Diabetes: No Diminished Hearing: Yes (BILATERAL RINGING OF THE EARS) Fibromyalgia: Yes GERD: Yes Hiatal Hernia: No Immune Disorder: No Kidney Stones: Yes Musculoskeletal: Yes (L3, L4, 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) Psychiatric: No Reproductive: No Respiratory: No Immunizations Current: Yes Migraines: Yes Myocardial Infarction: Yes (X 7) Renal Failure: No Seizures: No Thyroid Disease: No Ulcer: Yes Past Surgical History Abdominal Surgery: Yes (appendectomy) Appendectomy: Yes Cardiac Surgery: Yes (2 STENTS) Cholecystectomy: Yes Coronary Artery Bypass Graft: No Coronary Stent: Yes (X2) Pacemaker: No Social History Alcohol Use: No Tobacco Use: Yes (1/2 PPD) Substance Use: No Allergies-Medications (Allergen,Severity, Reaction): Coded Allergies: No Known Allergies (Unverified Allergy, Unknown, 10/15/17) Reported Meds & Prescriptions Reported Meds & Active Scripts Active Tgt Aspirin (Aspirin) 81 Mg Chw 81 Mg CHEW DAILY Reported Ibuprofen 600 Mg Tab 600 Mg PO TID Famotidine 10 Mg Tab 10 Mg PO BID Tylenol (Acetaminophen) 325 Mg Tab 650 Mg PO TID Review of Systems Except as stated in HPI: all other systems reviewed are Neg Physical Exam Narrative GENERAL: Well-developed, well-nourished, no apparent distress. SKIN: Focused skin assessment warm/dry. No rash. HEAD: Atraumatic. Normocephalic. EYES: Pupils equal and round. No scleral icterus. No injection or drainage. ENT: Mucous membranes pink and moist. Pharynx with diffuse erythema and edema with bilateral tonsillar exudates, uvula slightly deviated to the right, hoarse phonation, no trismus. No drooling or stridor. NECK: Trachea midline. No JVD. No anterior neck edema, induration, or erythema. CARDIOVASCULAR: Regular rate and rhythm. RESPIRATORY: No accessory muscle use. Clear to auscultation. Breath sounds equal bilaterally. GASTROINTESTINAL: Abdomen soft, non-tender, nondistended. MUSCULOSKELETAL: No obvious deformities. No clubbing. No cyanosis. No edema. NEUROLOGICAL: Awake and alert. No obvious cranial nerve deficits. Motor grossly within normal limits. Normal speech. PSYCHIATRIC: Appropriate mood and affect; insight and judgment normal. Data Data Last Documented VS Vital Signs Date Time Temp Pulse Resp B/P (MAP) Pulse Ox O2 Delivery O2 Flow Rate FiO2 10/15/17 21:10 100.9 10/15/17 20:32 95 Room Air 10/15/17 20:31 86 18 Orders Orders Sepsis Workup Initiated (10/15/17 ) Complete Blood Count With Diff (10/15/17 19:34) Comprehensive Metabolic Panel (10/15/17 19:34) Prothrombin Time / Inr (Pt) (10/15/17 19:34) Act Partial Throm Time (Ptt) (10/15/17 19:34) Lactic Acid Sepsis Protocol (10/15/17 19:34) Urinalysis - C+S If Indicated (10/15/17 19:34) Blood Culture (10/15/17 19:34) Ecg Monitoring (10/15/17 19:34) Iv Access Insert/Monitor (10/15/17 19:34) Oximetry (10/15/17 19:34) Sodium Chlor 0.9% 1000 Ml Inj (Ns 1000 M (10/15/17 19:34) Sodium Chlor 0.9% 1000 Ml Inj (Ns 1000 M (10/15/17 19:34) Group A Rapid Strep Screen (10/15/17 19:34) Ct Soft Tiss Neck W Iv Cont (10/15/17 ) Clindamycin 900 Mg/Ns Premix (Cleocin 90 (10/15/17 19:45) Dexamethasone Inj (Decadron Inj) (10/15/17 19:45) Monoscreen (10/15/17 19:39) Acetaminophen 650 Mg/20 Ml Liq (Tylenol (10/15/17 19:45) Strep Culture (Group A) (10/15/17 20:00) Urine Culture (10/15/17 20:18) Iohexol 350 Inj (Omnipaque 350 Inj) (10/15/17 20:50) Labs Laboratory Tests Test 10/15/17 20:04 10/15/17 20:18 White Blood Count 16.6 TH/MM3 Red Blood Count 3.32 MIL/MM3 Hemoglobin 10.9 GM/DL Hematocrit 32.4 % Mean Corpuscular Volume 97.4 FL Mean Corpuscular Hemoglobin 32.8 PG Mean Corpuscular Hemoglobin Concent 33.7 % Red Cell Distribution Width 13.7 % Platelet Count 217 TH/MM3 Mean Platelet Volume 8.2 FL Neutrophils (%) (Auto) 80.9 % Lymphocytes (%) (Auto) 7.4 % Monocytes (%) (Auto) 7.1 % Eosinophils (%) (Auto) 0.3 % Basophils (%) (Auto) 4.3 % Neutrophils # (Auto) 13.5 TH/MM3 Lymphocytes # (Auto) 1.2 TH/MM3 Monocytes # (Auto) 1.2 TH/MM3 Eosinophils # (Auto) 0.0 TH/MM3 Basophils # (Auto) 0.7 TH/MM3 CBC Comment AUTO DIFF Differential Comment AUTO DIFF CONFIRMED Prothrombin Time 10.0 SEC Prothromb Time International Ratio 1.0 RATIO Activated Partial Thromboplast Time 31.4 SEC Blood Urea Nitrogen 13 MG/DL Creatinine 0.72 MG/DL Random Glucose 105 MG/DL Total Protein 8.1 GM/DL Albumin 3.4 GM/DL Calcium Level 9.1 MG/DL Alkaline Phosphatase 89 U/L Aspartate Amino Transf (AST/SGOT) 19 U/L Alanine Aminotransferase (ALT/SGPT) 22 U/L Total Bilirubin 1.3 MG/DL Sodium Level 140 MEQ/L Potassium Level 3.9 MEQ/L Chloride Level 106 MEQ/L Carbon Dioxide Level 27.8 MEQ/L Anion Gap 6 MEQ/L Estimat Glomerular Filtration Rate 112 ML/MIN Lactic Acid Level 0.9 mmol/L Monoscreen NEG Urine Color YELLOW Urine Turbidity CLOUDY Urine pH 6.0 Urine Specific [place] 1.025 Urine Protein 30 mg/dL Urine Glucose (UA) NEG mg/dL Urine Ketones 15 mg/dL Urine Occult Blood LARGE Urine Nitrite NEG Urine Bilirubin NEG Urine Urobilinogen 2.0 MG/DL Urine Leukocyte Esterase NEG Urine RBC 100-200 /hpf Urine WBC 9-14 /hpf Urine Squamous Epithelial Cells 0-5 /hpf Microscopic Urinalysis Comment CATH-CULTURE IND MDM Medical Decision Making Medical Screen Exam Complete: Yes Emergency Medical Condition: Yes Medical Record Reviewed: Yes Differential Diagnosis Pharyngitis, mono, peritonsillar abscess, retropharyngeal abscess, epiglottitis Narrative Course Initial vital signs show heart rate 95, blood pressure 133/64, pulse ox 94% on room air, oral temp of 101.4F. CBC: WBC 16.6, hemoglobin 10.9, hematocrit 32.4, platelets 217, neutrophils 81%. CMP is unremarkable. Lactic acid 0.9. Group A strep is negative. [place] screen UA: Large occult blood, 100-200 RBCs, 9-[address] soft tissue neck: CONCLUSION: 1. 2.5 cm phlegmonous mass or early abscess in the left posterior oropharynx around the tonsillar region. Also focal soft tissue swelling in the hypopharynx on the left side as above. Borderline enlarged upper left cervical lymph nodes. Patient was made aware of all findings. His voice is still hoarse. There is no drooling or stridor on exam. O2 saturation is 94% on room air. He has been smoking since the age of 12. He was made aware of hematuria and reports history of chronic kidney stones, however because of his significant smoking history, I told him that they should be closely followed with a primary care physician/urologist on an outpatient basis. He was given 900 mg of IV clindamycin as well as 10 mg of IV Decadron was slight improvement in pain and swelling sensation in his throat. He was also given 2 L normal saline IV and oral liquid Tylenol. Case discussed with project controls specialist Dr. Guerra who will admit the patient to the ICU to my service at the [facility]. The patient was made aware of all findings and is amenable to this plan. Diagnosis Primary Impression: Sepsis Qualified Codes: A41.9 - Sepsis, unspecified organism Additional Impressions: Tonsillar abscess Microscopic hematuria Admitting Information Admitting Physician Requests: Admit Catrachito Hager MD October 15, 2017 19:40
[2017-10-15] MEDS ORDERED: DEXAMETHASONE SOD PHOS 20 MG/5 ML VIAL IV PUSH ONE (19:45)
[2017-10-15] MEDS ORDERED: CLINDAMYCIN 900 MG/NS PREMIX 50 ML IV ONE (19:45)
[2017-10-15] MEDS ORDERED: ACETAMINOPHEN 650 MG/20.3 ML UDC PO ONE (19:45)
[2017-10-15 20:31] LABS: AUTOMATED NEUTROPHIL # 13.5 TH/MM3 (1.8-7.7); BASOPHIL # 0.7 TH/MM3 (0-0.2); BASOPHIL % 4.3 % (0.0-2.0); EOSINOPHIL % 0.3 % (0.0-4.0); HEMATOCRIT 32.4 % (39.0-51.0); HEMOGLOBIN 10.9 GM/DL (13.0-17.0); LYMPH % 7.4 % (9.0-44.0); LYMPHOCYTE # 1.2 TH/MM3 (1.0-4.8); MEAN CELL VOLUME 97.4 FL (80.0-100.0); MEAN CORPUSCULAR HEMOGLOBIN 32.8 PG (27.0-34.0); MEAN CORPUSCULAR HGB CONC 33.7 % (32.0-36.0); MEAN PLATELET VOLUME 8.2 FL (7.0-11.0); MONO % 7.1 % (0.0-8.0); MONOCYTE # 1.2 TH/MM3 (0-0.9); NEUT % 80.9 % (16.0-70.0); PLATELET COUNT 217 TH/MM3 (150-450); RED BLOOD COUNT 3.32 MIL/MM3 (4.50-5.90); RED CELL DISTRIBUTION WIDTH 13.7 % (11.6-17.2); WHITE BLOOD COUNT 16.6 TH/MM3 (4.0-11.0)
[2017-10-15 20:35] LABS: CHLORIDE 106 MEQ/L (98-107); SODIUM (NA) 140 MEQ/L (136-145)
[2017-10-15 20:38] LABS: CALCIUM 9.1 MG/DL (8.5-10.1)
[2017-10-15 20:39] LABS: ALBUMIN 3.4 GM/DL (3.4-5.0); BICARBONATE 27.8 MEQ/L (21.0-32.0); BLOOD UREA NITROGEN 13 MG/DL (7-18); GLUCOSE,RANDOM 105 MG/DL (74-106)
[2017-10-15 20:42] LABS: ALT (GPT) 22 U/L (12-78); AST (GOT) 19 U/L (15-37); CREATININE 0.72 MG/DL (0.60-1.30); GLOMERULAR FILTRATION RATE 112 ML/MIN (>89)
[2017-10-15 20:43] LABS: TOTAL BILIRUBIN ADULT 1.3 MG/DL (0.2-1.0); TOTAL PROTEIN 8.1 GM/DL (6.4-8.2)
[2017-10-15 20:45] LABS: ALKALINE PHOSPHATASE 89 U/L (45-117)
[2017-10-15] MEDS ORDERED: IOHEXOL 350 MG/ML 10 ML VIAL (for RAD DIAG) IVCONTRAST ONE (20:50)
[2017-10-15 20:51] LABS: BILIRUBIN, URINE NEG (NEG); BLOOD, URINE LARGE (NEG); GLUCOSE,URINE NEG (NEG); KETONE, URINE 15 mg/dL (NEG); NITRITE,URINE NEG (NEG); URINE COLOR YELLOW (YELLW/STRAW); URINE LEUKOCYTE ESTERASE NEG (NEG)
[2017-10-15 21:02] LABS: RBC, URINE 100-200 /hpf (0-3); SQUAMOUS EPITHELIAL CELL URINE 0-5 /hpf (0-5)
[2017-10-15] MEDS ORDERED: IBUP-232 PO (21:29)
[2017-10-15 21:43] LABS: MONOSCREEN NEG (NEG)
--- NOTE | 2017-10-15 21:52 | RADRPT ---
EXAM DATE/TIME: 10/15/2017 20:52 [place] COMPARISON: No previous studies available for comparison. INDICATIONS : Sore throat for 2 days. Left side swelling. IV CONTRAST: 70 cc Omnipaque 350 (iohexol) IV RADIATION DOSE: 14.54 CTDIvol (mGy) MEDICAL HISTORY : Gastroesophageal reflux disease. Myocardial infarction. Cardiovascular disease SURGICAL HISTORY : none ENCOUNTER: Initial ACUITY: 2 days PAIN SCALE: 8/10 LOCATION: neck TECHNIQUE: Volumetric scanning of the neck was performed. Using automated exposure control and adjustment of th e mA and/or kV according to patient size, radiation dose was kept as low as reasonably achievable to obtain optimal diagnostic quality images. DICOM format image data is available electronically for r eview and comparison. FINDINGS: There is soft tissue swelling in the left posterior oropharynx in the tonsillar region measuring up t o 2.5 cm in diameter. This area of low attenuation could represent a phlegmonous mass or possibly an early abscess. There is also some focal 1.7 cm soft tissue swelling in the hypopharynx just below the base of the ep iglottis posteriorly on the left side. This results in mild encroachment on the airway. The glottis a nd subglottic region appear intact. No acute bony abnormalities. Borderline enlarged upper left cervi chen lymph nodes. CONCLUSION: 1. 2.5 cm phlegmonous mass or early abscess in the left posterior oropharynx around the tonsillar reg ion. Also focal soft tissue swelling in the hypopharynx on the left side as above. Borderline enlarge d upper left cervical lymph nodes. Douglas Oneal MD on October 15, 2017 at 21:46 Board Certified Radiologist. This report was verified electronically.
[2017-10-15] MEDS ORDERED: KETOROLAC TROMETHAMINE 30 MG/ML (IVP) VIAL IV PUSH ONE (23:15)
[2017-10-16] VITALS (17 sets, daily range): BP systolic 97–129; BP diastolic 54–71; PULSE 59–79; RESP 15–18; TEMP 98.3–98.6; O2SAT 94–96
[2017-10-16] MEDS ORDERED: CHLORHEXIDINE GLUCONATE 2 % 1 PACK (2 CLOTHS) TOP PRN (02:00)
[2017-10-16] MEDS ORDERED: MAGNESIUM HYDROXIDE SUSP 30 ML CUP PO PRN (02:00)
[2017-10-16] MEDS ORDERED: SENNOSIDES 8.6 MG TAB PO PRN (02:00)
[2017-10-16] MEDS ORDERED: SODIUM CHLORIDE 0.9% FLUSH 10 ML FLUSH IV FLUSH PRN (02:00)
[2017-10-16] MEDS ORDERED: BISACODYL 10 MG SUPP RECTAL PRN (02:00)
[2017-10-16] MEDS ORDERED: ACETAMINOPHEN 325 MG TAB PO PRN (02:00)
[2017-10-16] MEDS ORDERED: ONDANSETRON HCL 4 MG/2 ML VIAL IV PUSH PRN (02:00)
[2017-10-16] MEDS ORDERED: RESP: ALBUTEROL 2.5 MG/IPRATROPIUM 0.5 MG NEB (PRN) INH (02:00)
[2017-10-16] MEDS ORDERED: NURSING INFORMATION XX SCH (02:00)
[2017-10-16] MEDS ORDERED: LACTULOSE SYRUP 20 GM/30 ML CUP PO PRN (02:00)
[2017-10-16] MEDS ORDERED: Vancomycin Consult Pharmacy 1 EA OTHER SCH (02:15)
[2017-10-16] MEDS ORDERED: VANCOMYCIN INJ 1,000 MG in SODIUM CHLOR 0.9% 250 ML INJ 250 ML IV ONE (02:30)
--- NOTE | 2017-10-16 02:53 | HHI.HP ---
HPI Service Critical Care Medicine Primary Care Physician No Primary Care Physician Admission Diagnosis Sepsis, tonsillar abscess, hematuria Diagnosis: Travel History International Travel<30 Days: No Contact w/Intl Traveler <30 Da: No Traveled to Known Affected Are: No History of Present Illness 57-year-old male with history of hypertension, hyperlipidemia, leukocytosis, here for evaluation of sore throat and chills. Symptoms started 2 days ago and have been progressively worsening. Pain is severe, constant, worse with swallowing. He is able to swallow liquids, however is unable to swallow foods. He has not checked his temperature at home, but does have chills. No vomiting or diarrhea. No cough. The CT of the neck soft tissue shows 2.5 cm phlegmonous mass or early abscess in the left posterior oropharynx around the tonsillar region. Also focal soft tissue swelling in the hypopharynx on the left side. Borderline enlarged upper left cervical lymph nodes. Review of Systems Constitutional: DENIES: Diaphoretic episodes, Fatigue, Fever, Weight gain, Weight loss, Chills, Dizziness, Change in appetite, Night Sweats Endocrine: DENIES: Heat/cold intolerance, Polydipsia, Polyuria, Polyphagia Eyes: DENIES: Blurred vision, Diplopia, Eye inflammation, Eye pain, Vision loss , Photosensitivity, Double Vision Ears, nose, mouth, throat: DENIES: Tinnitus, Hearing loss, Vertigo, Nasal discharge, Oral lesions, Throat pain, Hoarseness, Ear Pain, Running Nose, Epistaxis, Sinus Pain, Toothache, Odynophagia Respiratory: DENIES: Apneas, Cough, Snoring, Wheezing, Hemoptysis, Sputum production, Shortness of breath Cardiovascular: DENIES: Chest pain, Palpitations, Syncope, Dyspnea on Exertion , PND, Lower Extremity Edema, Orthopnea, Claudication Gastrointestinal: COMPLAINS OF: Difficulty Swallowing, DENIES: Abdominal pain, Black stools, Bloody stools, Constipation, Diarrhea, Nausea, Vomiting, Anorexia Genitourinary: DENIES: Sexual dysfunction, Urinary frequency, Urinary incontinence, Urgency, Hematuria, Dysuria, Nocturia, Penile Discharge, Testicular Pain, Testicular Swelling Musculoskeletal: DENIES: Joint pain, Muscle aches, Stiffness, Joint Swelling, Back pain, Neck pain Integumentary: DENIES: Abnormal pigmentation, Nail changes, Pruritus, Rash Hematologic/lymphatic: DENIES: Bruising, Lymphadenopathy Immunologic/allergic: DENIES: Eczema, Urticaria Neurologic: DENIES: Abnormal gait, Headache, Localized weakness, Paresthesias, Seizures, Speech Problems, Tremor, Poor Balance Psychiatric: DENIES: Anxiety, Confusion, Mood changes, Depression, Hallucinations, Agitation, Suicidal Ideation, Homicidal Ideation, Delusions Past Family Social History Allergies: Coded Allergies: No Known Allergies (Unverified Allergy, Unknown, 10/15/17) Past Medical History Arthritis: Yes (osteoarthritis) Cardiac Catheterization: Yes Cardiovascular Problems: Yes (HX NE) High Cholesterol: Yes Chest Pain: Yes Coronary Artery Disease: Yes Diminished Hearing: Yes (BILATERAL RINGING OF THE EARS) Fibromyalgia: Yes GERD: Yes Kidney Stones: Yes Musculoskeletal: Yes (L3, L4, 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) Migraines: Yes Myocardial Infarction: Yes (X 7) Ulcer: Yes Past Surgical History Abdominal Surgery: Yes (appendectomy) Appendectomy: Yes Cardiac Surgery: Yes (2 STENTS) Cholecystectomy: Yes Coronary Stent: Yes (X2) Reported Medications Reported Meds & Active Scripts Active Tgt Aspirin (Aspirin) 81 Mg Chw 81 Mg CHEW DAILY Reported Ibuprofen 600 Mg Tab 600 Mg PO TID Famotidine 10 Mg Tab 10 Mg PO BID Tylenol (Acetaminophen) 325 Mg Tab 650 Mg PO TID Active Ordered Medications Current Medications Medications (Trade) Dose Ordered Sig/Geovanna Route PRN Reason Start Time Stop Time Status Last Admin Dose Admin Sodium Chloride 1,000 ml @ 184 mls/hr [id number] IV 10/16/17 02:00 Sodium Chloride (NS Flush) 2 ml UNSCH PRN IV FLUSH FLUSH AFTER USING IV ACCESS 10/16/17 02:00 Sodium Chloride (NS Flush) 2 ml BID IV FLUSH 10/16/17 09:00 Acetaminophen (Tylenol) 650 mg Q6H PRN PO PAIN 1-5 AND/OR FEVER >101F 10/16/17 02:00 Morphine Sulfate (Morphine Inj) 2 mg Q2H PRN IV PUSH PAIN SCALE 6 TO 10 10/16/17 02:00 Famotidine (Pepcid Inj) 20 mg Q12HR IV PUSH 10/16/17 09:00 Ondansetron HCl (Zofran Inj) 4 mg Q6H PRN IV PUSH NAUSEA OR VOMITING 10/16/17 02:00 Albuterol/ Ipratropium (Duoneb Neb) 1 ampule Q2HR NEB PRN INH WHEEZING 10/16/17 02:00 Heparin Sodium (Porcine) (Heparin Inj) 5,000 units Q8H SQ 10/16/17 06:00 Miscellaneous Information ([facility] [place] Nursing Information) 1 [id number] XX 10/16/17 02:00 Chlorhexidine Gluconate (Chlorhexidine 2% Cloth) 3 pack Taper DAILY@04 TOP 10/16/17 04:00 10/12/18 03:59 Chlorhexidine Gluconate (Chlorhexidine 2% Cloth) 3 pack UNSCH PRN TOP HYGIENIC CARE 10/16/17 02:00 Senna/Docusate Sodium (Christie-Colace) 1 tab BID PO 10/16/17 09:00 Magnesium Hydroxide (Milk Of Magnesia Liq) 30 ml Q12H PRN PO Mild constipation 10/16/17 02:00 Sennosides (Senokot) 17.2 mg Q12H PRN PO Moderate constipation 10/16/17 02:00 Bisacodyl (Dulcolax Supp) 10 mg DAILY PRN RECTAL SEVERE CONSITIPATION 10/16/17 02:00 Lactulose (Lactulose Liq) 30 ml DAILY PRN PO SEVERE CONSITIPATION 10/16/17 02:00 Piperacillin Sod/ Tazobactam Sod 100 ml @ 200 mls/hr Q6H IV 10/16/17 03:00 Clindamycin/ Sodium Chloride 50 ml @ 100 mls/hr Q6H IV 10/16/17 02:00 Vancomycin HCl 1000 mg/Sodium Chloride 250 ml @ 250 mls/hr ONCE ONCE IV 10/16/17 02:30 10/16/17 03:29 Pharmacy Profile Note 0 ml @ 0 mls/hr UNSCH OTHER 10/16/17 02:15 Dexamethasone Sodium Phosphate (Decadron Inj) 4 mg Q6HR IV PUSH 10/16/17 06:00 Family History No family history significant of neck cancer Social History Alcohol Use: No Tobacco Use: Yes (1/2 PPD) Substance Use: No Physical Exam Vital Signs Vital Signs Date Time Temp Pulse Resp B/P (MAP) Pulse Ox O2 Delivery O2 Flow Rate FiO2 10/16/17 00:55 96 Nasal Cannula 2.00 10/16/17 00:00 79 10/15/17 23:54 99.8 85 20 106/70 (82) 92 10/15/17 23:22 93 18 95 10/15/17 23:13 92 18 118/73 (88) 94 Room Air 10/15/17 22:15 93 18 108/66 (80) 94 Room Air 10/15/17 21:10 100.9 10/15/17 20:32 95 Room Air 10/15/17 20:31 86 18 113/67 (82) 95 Room Air 10/15/17 19:39 18 10/15/17 19:18 101.4 95 14 133/64 (87) 94 Physical Exam GENERAL: Well-nourished, well-developed patient. SKIN: Warm and dry. HEAD: Normocephalic. EYES: No scleral icterus. No injection or drainage. ENT: Mucous membranes pink and moist. Pharynx with diffuse erythema and edema with bilateral tonsillar exudates, uvula slightly deviated to the right, hoarse phonation, no trismus. No drooling or stridor. CARDIOVASCULAR: Regular rate and rhythm without murmurs, gallops, or rubs. RESPIRATORY: Breath sounds equal bilaterally. No accessory muscle use. GASTROINTESTINAL: Abdomen soft, non-tender, nondistended. MUSCULOSKELETAL: No cyanosis, or edema. BACK: Nontender without obvious deformity. NEURO EXAM: GCS: 15 Mental Status: The patient is alert and oriented to person, place, and time with normal speech. Cranial Nerves: Visual acuity intact bilaterally. Visual freedman normal in all quadrants. Pupils are round, reactive to light. Extraocular movements are intact without ptosis. Hearing is normal bilaterally. Voice is normal. Tongue protrudes midline and moves symmetrically. Reflexes: Biceps, patellar, and Achilles are 2/4 bilaterally. No clonus. Sensation: Sensation is intact bilaterally to pain and light touch. Two-point discrimination is intact. Motor: Good muscle tone. Strength is 5/5 bilaterally. Cerebellar: [id number]-rc-lala and rexj-sd-hesp test normal bilaterally. Laboratory Laboratory Tests Test 10/15/17 20:04 10/15/17 20:18 White Blood Count 16.6 Red Blood Count 3.32 Hemoglobin 10.9 Hematocrit 32.4 Mean Corpuscular Volume 97.4 Mean Corpuscular Hemoglobin 32.8 Mean Corpuscular Hemoglobin Concent 33.7 Red Cell Distribution Width 13.7 Platelet Count 217 Mean Platelet Volume 8.2 Neutrophils (%) (Auto) 80.9 Lymphocytes (%) (Auto) 7.4 Monocytes (%) (Auto) 7.1 Eosinophils (%) (Auto) 0.3 Basophils (%) (Auto) 4.3 Neutrophils # (Auto) 13.5 Lymphocytes # (Auto) 1.2 Monocytes # (Auto) 1.2 Eosinophils # (Auto) 0.0 Basophils # (Auto) 0.7 CBC Comment AUTO DIFF Differential Comment AUTO DIFF CONFIRMED Prothrombin Time 10.0 Prothromb Time International Ratio 1.0 Activated Partial Thromboplast Time 31.4 Blood Urea Nitrogen 13 Creatinine 0.72 Random Glucose 105 Total Protein 8.1 Albumin 3.4 Calcium Level 9.1 Alkaline Phosphatase 89 Aspartate Amino Transf (AST/SGOT) 19 Alanine Aminotransferase (ALT/SGPT) 22 Total Bilirubin 1.3 Sodium Level 140 Potassium Level 3.9 Chloride Level 106 Carbon Dioxide Level 27.8 Anion Gap 6 Estimat Glomerular Filtration Rate 112 Lactic Acid Level 0.9 Monoscreen NEG Urine Color YELLOW Urine Turbidity CLOUDY Urine pH 6.0 Urine Specific Aneta 1.025 Urine Protein 30 Urine Glucose (UA) NEG Urine Ketones 15 Urine Occult Blood LARGE Urine Nitrite NEG Urine Bilirubin NEG Urine Urobilinogen 2.0 Urine Leukocyte Esterase NEG Urine RBC 100-200 Urine WBC 9-14 Urine Squamous Epithelial Cells 0-5 Microscopic Urinalysis Comment CATH-CULTURE IND Date/Time Source Procedure Growth Status 10/15/17 20:11 Blood Peripheral Aerobic Blood Culture Pending Received 10/15/17 20:11 Blood Peripheral Anaerobic Blood Culture Pending Received 10/15/17 20:00 Throat Group A Streptococcus Screen Pending Received 10/15/17 20:18 Urine Catheterized Urine Urine Culture Pending Received Result Diagram: 10/15/17200310/15/172003 Imaging CONCLUSION: 1. 2.5 cm phlegmonous mass or early abscess in the left posterior oropharynx around the tonsillar region. Also focal soft tissue swelling in the hypopharynx on the left side as above. Borderline enlarged upper left cervical lymph nodes. Caprini VTE Risk Assessment Caprini VTE Risk Assessment: Mod/High Risk (score >= 2) Caprini Risk Assessment Model Point Value = 1 Point Value = 2 Point Value = 3 Point Value = 5 Age 41-60 Minor surgery BMI > 25 kg/m2 Swollen legs Varicose veins or History of unexplained or recurrent spontaneous Oral contraceptives or hormone replacement Sepsis (< 1 month) Serious lung disease, including pneumonia (< 1 month) Abnormal pulmonary function Acute myocardial infarction Congestive heart failure (< 1 month) History of inflammatory bowel disease Medical patient at bed rest Age 61-74 Arthroscopic surgery Major open surgery (> 45 min) Laparoscopic surgery (> 45 min) Malignancy Confined to bed (> 72 hours) Immobilizing plaster cast Central venous access Age >= 75 History of VTE Family history of VTE Factor V Leiden Prothrombin [id number] Lupus anticoagulant Anticardiolipin antibodies Elevated serum homocysteine Heparin-induced thrombocytopenia Other congenital or acquired thrombophilia Stroke (< 1 month) Elective arthroplasty Hip, pelvis, or leg fracture Acute spinal cord injury (< 1 month) Prophylaxis Regimen Total Risk Factor Score Risk Level Prophylaxis Regimen 0-1 Low Early ambulation 2 Moderate Order ONE of the following: *Sequential Compression Device (SCD) *Heparin 5000 units SQ BID 3-4 Higher Order ONE of the following medications: *Heparin 5000 units SQ TID *Enoxaparin/Lovenox 40 mg SQ daily (WT < 150 kg, CrCl > 30 mL/min) *Enoxaparin/Lovenox 30 mg SQ daily (WT < 150 kg, CrCl > 10-29 mL/min) *Enoxaparin/Lovenox 30 mg SQ BID (WT < 150 kg, CrCl > 30 mL/min) AND/OR *Sequential Compression Device (SCD) 5 or more Highest Order ONE of the following medications: *Heparin 5000 units SQ TID (Preferred with Epidurals) *Enoxaparin/Lovenox 40 mg SQ daily (WT < 150 kg, CrCl > 30 mL/min) *Enoxaparin/Lovenox 30 mg SQ daily (WT < 150 kg, CrCl > 10-29 mL/min) *Enoxaparin/Lovenox 30 mg SQ BID (WT < 150 kg, CrCl > 30 mL/min) AND *Sequential Compression Device (SCD) Assessment and Plan Assessment and Plan Peritonsillar abscess -Broad-spectrum antibiotics -Clindamycin vancomycin -Panculture -ENT consolidation -Decadron -Monitor in the ICU for airway Coronary artery disease -No acute syndrome -Continue home dose of aspirin Arthritis -Ibuprofen Tylenol as needed DVT GI prophylaxis -Navid's and SCDs -Subcu heparin -Pepcid Critical Care: The total critical care time was 35 minutes. Time to perform other separately billable procedures was not included in the critical care time. Jaspreet Guerra MD October 16, 2017 02:53
[2017-10-16] MEDS: PIPERACIL-TAZO 4.5 GM PREMIX 100 ML IV SCH ×4 (03:26→20:45)
[2017-10-16] MEDS: CLINDAMYCIN 900 MG/NS PREMIX 50 ML IV SCH ×4 (03:27→20:45)
[2017-10-16] MEDS: CHLORHEXIDINE GLUCONATE 2 % 1 PACK (2 CLOTHS) TOP SCH (03:28)
[2017-10-16] MEDS: SODIUM CHLOR 0.9% 1000 ML INJ 1,000 ML IV SCH ×4 (05:31→22:54)
[2017-10-16] MEDS: HEPARIN SODIUM - SQ 10,000 UNITS/ML VIAL SQ SCH ×3 (05:32→20:46)
[2017-10-16] MEDS: DEXAMETHASONE SOD PHOS 4 MG/ML VIAL IV PUSH SCH ×3 (05:32→17:10)
[2017-10-16] MEDS: MORPHINE SULFATE 4 MG/ML INJ IV PUSH PRN ×3 (05:39→21:08)
[2017-10-16] MEDS: FAMOTIDINE 20 MG/2 ML VIAL IV PUSH SCH ×2 (08:31→20:46)
[2017-10-16] MEDS: ASPIRIN 81 MG CHEW TAB CHEW SCH (08:31)
[2017-10-16] MEDS: IBUPROFEN 600 MG TAB PO SCH ×3 (08:31→17:10)
[2017-10-16] MEDS: SODIUM CHLORIDE 0.9% FLUSH 10 ML FLUSH IV FLUSH SCH ×2 (08:31→20:45)
[2017-10-16] MEDS: DOCUSATE SODIUM 50 MG/SENNA 8.6 MG TAB PO SCH ×2 (09:00→20:46)
--- NOTE | 2017-10-16 10:01 | MB ---
cc: Jer Tobias MD DATE: 10/16/2017 CHIEF COMPLAINT: Left peritonsillar infection. HISTORY OF PRESENT ILLNESS: The patient is a pleasant 57-year-old male with heavy tobacco history, with a recent throat infections, feeling worse over the last few days. He was admitted and put on IV antibiotics and steroids with mild improvement of his symptoms. He is tolerating his secretions. He has no airway compromise currently. A CAT scan was consistent with a left tonsillar phlegmon/cellulitis picture with no definitive abscess at all. PHYSICAL EXAMINATION: GENERAL: On examination of the patient, he is a well adult. He is able to tolerate his secretions. He is phonating well. NECK EXAMINATION: He had mild tenderness of his left cervical lymph nodes, THROAT EXAMINATION: He has mild fullness of his left peritonsillar area and soft palate. There is no definitive bulging of the soft palate at all. FLEXIBLE FIBEROPTIC LARYNGOSCOPY: Revealed a patent airway bilaterally to the larynx. No evidence of carcinoma. ASSESSMENT: Active peritonsillar cellulitis, no active abscess. RECOMMENDATIONS: Recommend the patient stay in-house for 48 hours of IV antibiotics and steroids. If the patient continues to do well, I recommend advancing his diet to full liquid diet tomorrow morning, to a soft diet tomorrow evening and have him discharged after 48 hours of IV antibiotics and steroids if he is clinically doing well. The patient should followup as an outpatient in 2 to 4 weeks for followup evaluation and also for further evaluation regarding his tobacco history and risk for carcinoma in the future. Jer Tobias MD PCC/SB , 09:33 AM , 10:00 AM
[2017-10-16 11:40] LABS: AUTOMATED NEUTROPHIL # 13.3 TH/MM3 (1.8-7.7); BASOPHIL % 0.1 % (0.0-2.0); HEMATOCRIT 28.1 % (39.0-51.0); HEMOGLOBIN 9.3 GM/DL (13.0-17.0); LYMPH % 5.4 % (9.0-44.0); LYMPHOCYTE # 0.8 TH/MM3 (1.0-4.8); MEAN CELL VOLUME 98.8 FL (80.0-100.0); MEAN CORPUSCULAR HEMOGLOBIN 32.6 PG (27.0-34.0); MEAN PLATELET VOLUME 7.2 FL (7.0-11.0); MONO % 4.5 % (0.0-8.0); MONOCYTE # 0.7 TH/MM3 (0-0.9); PLATELET COUNT 195 TH/MM3 (150-450); RED BLOOD COUNT 2.84 MIL/MM3 (4.50-5.90); RED CELL DISTRIBUTION WIDTH 13.2 % (11.6-17.2); WHITE BLOOD COUNT 14.8 TH/MM3 (4.0-11.0)
[2017-10-16] MEDS: ACETAMINOPHEN 1000 MG/100 ML 100 ML IV SCH ×3 (12:20→22:20)
[2017-10-16] MEDS: VANCOMYCIN 1,500 MG/NS 500 ML IV SCH ×2 (14:54)
--- NOTE | 2017-10-16 18:41 | EKG ---
Date Performed: 10/16/2017 Time Performed: 06:51:58 PTAGE: 57 years EKG: Sinus rhythm . Possible septal infarct - age undetermined When compared to previous tracing, septal infarct change s are New, may represent internal infarct or could be lead placement. Abnormal ECG PREVIOUS TRACING : 05/14/2017 16.45 DOCTOR: Kristina Sparks Interpretating Date/Time 10/16/2017 16:39:06
[2017-10-17] VITALS (14 sets, daily range): BP systolic 104–138; BP diastolic 58–71; PULSE 44–62; RESP 16–19; TEMP 97.3–99; O2SAT 91–96
[2017-10-17] MEDS: DEXAMETHASONE SOD PHOS 4 MG/ML VIAL IV PUSH SCH ×4 (00:20→18:00)
[2017-10-17] MEDS: CLINDAMYCIN 900 MG/NS PREMIX 50 ML IV SCH ×2 (02:00→08:56)
[2017-10-17] MEDS: PIPERACIL-TAZO 4.5 GM PREMIX 100 ML IV SCH ×2 (02:01→08:56)
[2017-10-17] MEDS: VANCOMYCIN 1,500 MG/NS 500 ML IV SCH ×2 (02:01)
[2017-10-17] MEDS: CHLORHEXIDINE GLUCONATE 2 % 1 PACK (2 CLOTHS) TOP SCH (04:00)
[2017-10-17] MEDS: ACETAMINOPHEN 1000 MG/100 ML 100 ML IV SCH (04:08)
[2017-10-17] MEDS: MORPHINE SULFATE 4 MG/ML INJ IV PUSH PRN (04:09)
[2017-10-17 05:11] LABS: PROTHROMBIN TIME - PATIENT 10.3 SEC (9.8-11.6)
[2017-10-17] MEDS: HEPARIN SODIUM - SQ 10,000 UNITS/ML VIAL SQ SCH ×3 (05:11→21:16)
[2017-10-17 05:17] LABS: AUTOMATED NEUTROPHIL # 11.3 TH/MM3 (1.8-7.7); BASOPHIL % 0.1 % (0.0-2.0); HEMATOCRIT 27.3 % (39.0-51.0); LYMPH % 6.8 % (9.0-44.0); LYMPHOCYTE # 0.9 TH/MM3 (1.0-4.8); MEAN CORPUSCULAR HEMOGLOBIN 32.5 PG (27.0-34.0); MEAN CORPUSCULAR HGB CONC 32.8 % (32.0-36.0); MONO % 4.3 % (0.0-8.0); MONOCYTE # 0.5 TH/MM3 (0-0.9); NEUT % 88.8 % (16.0-70.0); PLATELET COUNT 199 TH/MM3 (150-450); RED BLOOD COUNT 2.75 MIL/MM3 (4.50-5.90); RED CELL DISTRIBUTION WIDTH 13.7 % (11.6-17.2); WHITE BLOOD COUNT 12.7 TH/MM3 (4.0-11.0)
[2017-10-17 05:19] LABS: ALBUMIN 2.7 GM/DL (3.4-5.0); AST (GOT) 27 U/L (15-37); BICARBONATE 24.7 MEQ/L (21.0-32.0); BLOOD UREA NITROGEN 21 MG/DL (7-18); CALCIUM 8.2 MG/DL (8.5-10.1); CHLORIDE 112 MEQ/L (98-107); GLOMERULAR FILTRATION RATE 115 ML/MIN (>89); GLUCOSE,RANDOM 137 MG/DL (74-106); MAGNESIUM 2.2 MG/DL (1.5-2.5); SODIUM (NA) 145 MEQ/L (136-145)
[2017-10-17 05:23] LABS: ALKALINE PHOSPHATASE 65 U/L (45-117); ALT (GPT) 41 U/L (12-78); TOTAL BILIRUBIN ADULT 0.6 MG/DL (0.2-1.0); TOTAL PROTEIN 6.5 GM/DL (6.4-8.2)
--- NOTE | 2017-10-17 08:08 | HHI.CCPN ---
Subjective Remarks/Hospital Course 57-year-old male with history of hypertension, hyperlipidemia, leukocytosis, here for evaluation of sore throat and chills. Symptoms started 2 days ago and have been progressively worsening. Pain is severe, constant, worse with swallowing. He is able to swallow liquids, however is unable to swallow foods. He has not checked his temperature at home, but does have chills. No vomiting or diarrhea. No cough. The CT of the neck soft tissue shows 2.5 cm phlegmonous mass or early abscess in the left posterior oropharynx around the tonsillar region. Also focal soft tissue swelling in the hypopharynx on the left side. Borderline enlarged upper left cervical lymph nodes. Subjective: 10/17/17: Afebrile. No acute events overnight. Patient expressing dissatisfaction secondary to nursing staff, loud noise during the night receiving no information regarding his care requesting to leave AMA. Lab and imaging studies reviewed with the patient. The patient was transferred to a private room. Patient understands that he has peritonsillar cellulitis and will require IV antibiotics for another 24 hours, will transition to p.o. antibiotics for planned disposition on an outpatient basis. ID has been consulted regarding duration of antibiotics. Patient previously yesterday had had an issue with IV morphine saying he did not have pain in his chest but a funny feeling in his chest morphine was discontinued . Ofirmev 1GM every 6 hours given with adequate pain relief. Stat EKG was performed, patient's baseline. Objective Vital Signs Date Time Temp Pulse Resp B/P (MAP) Pulse Ox O2 Delivery O2 Flow Rate FiO2 10/17/17 07:28 96 Nasal Cannula 2.00 10/17/17 06:00 50 10/17/17 04:00 98.1 16 116/68 (84) Intake and Output 10/17/17 10/17/17 10/18/17 08:00 16:00 00:00 Intake Total 870 ml Output Total 700 ml Balance 170 ml Result Diagram: 10/17/17 0416 10/17/17 0416 Other Results Microbiology Date/Time Source Procedure Growth Status 10/15/17 20:00 Throat Group A Streptococcus Screen ([facility]) - Final Complete Imaging CONCLUSION: 1. 2.5 cm phlegmonous mass or early abscess in the left posterior oropharynx around the tonsillar region. Also focal soft tissue swelling in the hypopharynx on the left side as above. Borderline enlarged upper left cervical lymph nodes. Objective Remarks GENERAL: This is a well-nourished, well-developed male patient in no acute. SKIN: Warm and dry. HEAD: Normocephalic. EYES: No scleral icterus. No injection or drainage. ENT: Mucous membranes pink and moist. Pharynx erythema and edema significantly diminished with bilateral tonsillar exudates, hoarse phonation still present but better than the evaluate yesterday, no trismus. No drooling or stridor. CARDIOVASCULAR: Regular rate and rhythm without murmurs, gallops, or rubs. RESPIRATORY: Breath sounds equal bilaterally. No accessory muscle use. O2 via nasal cannula 2 L GASTROINTESTINAL: Abdomen soft, non-tender, nondistended. MUSCULOSKELETAL: No cyanosis, or edema. BACK: Nontender without obvious deformity. NEURO EXAM: GCS: 15 Mental Status: the patient is alert and oriented to person, place, and time with normal speech. Cranial Nerves: Visual acuity intact bilaterally. Visual freedman normal in all quadrants. Pupils are round, reactive to light. Extraocular movements are intact without ptosis. Hearing is normal bilaterally. Voice is normal. Tongue protrudes midline and moves symmetrically. Reflexes: Biceps, patellar, and Achilles are 2/4 bilaterally. No clonus. Sensation: Sensation is intact bilaterally to pain and light touch. Two-point discrimination is intact. Motor: Good muscle tone. Strength is 5/5 bilaterally. Cerebellar: Daegyz-ok-yhey and [id number]-[id number]-tujv test normal bilaterally. A/P Assessment and Plan Peritonsillar abscess/cellulitis -Broad-spectrum antibiotics -Clindamycin , vancomycin,Zosyn -Culture, urine culture negative growth to date -ENT evaluation performed -recommendations to report in 2-4 weeks on outpatient basis for re-evaluation -Decadron 4 mg every 6 hours -Monitor in the ICU for airway Coronary artery disease -No acute syndrome -Continue home dose of aspirin GERD -Continue home medication Pepcid Arthritis -Ibuprofen -Ofirmev 1 g every 6 hours 24 hours -MorphineIV for breakthrough pain DVT GI prophylaxis -Navid's and SCDs OOB to chair and bedside commode with assistance -Subcu heparin -Pepcid BID -patient takes at home Level 2 followup Patient initially wanted to leave [place] secondary to hospital conditions and nursing staff. Extensive discussion with patient regarding evaluation and plans for treatment. The patient is agreeable to follow the plans of treatment. Patient was provided a medical update ID has been consulted patient will be transitioned to p.o. antibiotics after 48 hours of IV antibiotics per recommendations of ENT destini. Plan for discharge in a.m. Patient to return to ENT Dr. Tobias in 2 weeks. Discussed with patient and [employer] at bedside (Valeria) all questions answered Physician Edwige Chand MD October 17, 2017 08:08
[2017-10-17] MEDS: IBUPROFEN 600 MG TAB PO SCH ×3 (08:56→18:00)
[2017-10-17] MEDS: FAMOTIDINE 20 MG TAB PO SCH ×2 (08:56→20:03)
[2017-10-17] MEDS: ASPIRIN 81 MG CHEW TAB CHEW SCH (08:56)
[2017-10-17] MEDS: SODIUM CHLORIDE 0.9% FLUSH 10 ML FLUSH IV FLUSH SCH ×2 (08:57→20:03)
[2017-10-17] MEDS ORDERED: ASPIRIN 81 MG CHEW TAB CHEW SCH (09:00)
[2017-10-17] MEDS: DOCUSATE SODIUM 50 MG/SENNA 8.6 MG TAB PO SCH ×2 (09:00→20:04)
--- NOTE | 2017-10-17 11:22 | PD.ID.CON ---
History of Present Illness Service Infectious disease Consult Requested By Dr. Edwige Man Reason for Consult Evaluation and management of sepsis, tonsillopharyngitis Primary Care Physician No Primary Care Physician Diagnoses: History of Present Illness Emiliana is a 57-year-old male with past medical history significant for hypertension, hyperlipidemia who presented with history of sore throat, difficulty swallowing as well as feeling of choking sensation. He initially presented to [place] emergency department and thereafter was transferred to the main hospital. Patient reports that he was recently hospitalized in [place] where he was diagnosed to have heatstroke and received IV fluids in the emergency department. Thereafter he was discharged and in route back home to [place] he notice scratchy throat as well as some pain on swallowing. His symptoms progressively got worse to the extent that he was unable to swallow even water without any difficulty and also he developed a feeling of choking sensation. Patient reports subjective fever as well as chills but denies having any night sweats. He denies any nausea vomiting or diarrhea. He denies any cough. Upon presentation to the emergency department patient had fever tachycardia and met criteria for sepsis. A CT of the neck was performed which showed a 2.5 cm phlegmonous mass or early abscess in the left posterior pharynx from the tonsillar region. Also soft tissue swelling in the hypopharynx on the left side. Borderline enlarged upper left cervical lymph nodes. Infectious disease is consulted for evaluation and management of sepsis and tonsillopharyngitis. Upon further questioning patient reports that he is a man who has sex with man. He has been with his spouse for the last 15 years. He reports prior history of being treated for syphilis at the health department. Neither patient nor his partner have any current symptoms suggestive of sexually transmitted disease. Denies any penile discharge. Denies any lesions on either of the penis. HIV negative per patient recently tested Hepatitis profile negative. Review of Systems ROS Limitations: Poor Historian Past Family Social History Allergies: Coded Allergies: No Known Allergies (Unverified Allergy, Unknown, 10/15/17) Past Medical History Osteoarthritis History of [place] Hypercholesterolemia Coronary artery disease Tinnitus Fibromyalgia GERD Kidney stones L3-L4-L5 herniated disc with nerve displacement Migraines Past Surgical History Appendectomy Cardiac cath Cardiac stents Cholecystectomy Reported Medications Reported Meds & Active Scripts Active Tgt Aspirin (Aspirin) 81 Mg Chw 81 Mg CHEW DAILY Reported Ibuprofen 600 Mg Tab 600 Mg PO TID Famotidine 10 Mg Tab 10 Mg PO BID Tylenol (Acetaminophen) 325 Mg Tab 650 Mg PO TID Active Ordered Medications Current Medications Medications (Trade) Dose Ordered Sig/Geovanna Route Start Time Stop Time Status Last Admin Sodium Chloride 1,000 ml @ 84 mls/hr [id number] IV 10/16/17 02:00 10/16/17 22:54 (NS Flush) 2 ml UNSCH PRN IV FLUSH 10/16/17 02:00 (NS Flush) 2 ml BID IV FLUSH 10/16/17 09:00 10/17/17 08:57 (Tylenol) 650 mg Q6H PRN PO 10/16/17 02:00 (Morphine Inj) 2 mg Q2H PRN IV PUSH 10/16/17 02:00 10/17/17 04:09 (Zofran Inj) 4 mg Q6H PRN IV PUSH 10/16/17 02:00 (Duoneb Neb) 1 ampule Q2HR NEB PRN INH 10/16/17 02:00 (Heparin Inj) 5,000 units Q8H SQ 10/16/17 06:00 10/17/17 05:11 ([facility] Nursing Information) 1 [id number] XX 10/16/17 02:00 10/16/17 02:00 (Chlorhexidine 2% Cloth) 3 pack Taper DAILY@04 TOP 10/16/17 04:00 10/12/18 03:59 10/17/17 04:00 (Chlorhexidine 2% Cloth) 3 pack UNSCH PRN TOP 10/16/17 02:00 (Christie-Colace) 1 tab BID PO 10/16/17 09:00 10/16/17 20:46 (Milk Of Magnesia Liq) 30 ml Q12H PRN PO 10/16/17 02:00 (Senokot) 17.2 mg Q12H PRN PO 10/16/17 02:00 (Dulcolax Supp) 10 mg DAILY PRN RECTAL 10/16/17 02:00 (Lactulose Liq) 30 ml DAILY PRN PO 10/16/17 02:00 (Decadron Inj) 4 mg Q6HR IV PUSH 10/16/17 06:00 10/17/17 12:35 (Aspirin Chew) 81 mg DAILY CHEW 10/16/17 09:00 10/17/17 08:56 (Motrin) 600 mg TID PO 10/16/17 09:00 10/17/17 12:35 (Pepcid) 20 mg BID PO 10/17/17 09:00 10/17/17 08:56 Ampicillin Sodium/ Sulbactam Sodium 1500 mg/Sodium Chloride 100 ml @ 200 mls/hr Q6H IV 10/17/17 12:00 10/17/17 12:37 Family History Reviewed and noncontributory to current infectious disease problems. Social History Lives in [place] with his spouse who is a male. Travels for work recent travel to [place]. Occasional alcohol. Does admit to smoking half pack per day for many years also uses electronic cigarette. Denies any intravenous drugs. Physical Exam Vital Signs Vital Signs Date Time Temp Pulse Resp B/P (MAP) Pulse Ox O2 Delivery O2 Flow Rate FiO2 10/17/17 07:28 96 Nasal Cannula 2.00 10/17/17 06:00 50 10/17/17 04:00 58 10/17/17 04:00 98.1 58 16 116/68 (84) 91 10/17/17 02:00 56 10/17/17 00:00 97.3 60 16 104/58 (73) 95 10/17/17 00:00 60 10/16/17 22:16 95 Nasal Cannula 2.00 10/16/17 22:00 60 10/16/17 20:00 59 10/16/17 20:00 98.3 59 16 104/62 (76) 94 10/16/17 18:00 68 10/16/17 16:00 98.3 69 18 99/59 (72) 95 10/16/17 16:00 68 10/16/17 15:00 66 10/16/17 14:00 68 10/16/17 12:00 68 10/16/17 12:00 98.6 69 18 111/61 (78) 95 Physical Exam GENERAL: This is a well-nourished, well-developed patient, in no apparent distress. SKIN: No rashes, ecchymoses or lesions. Cool and dry. HEAD: Atraumatic. Normocephalic. No temporal or scalp tenderness. EYES: Pupils equal round and reactive. Extraocular motions intact. No scleral icterus. No injection or drainage. ENT: Nose without bleeding, purulent drainage or septal hematoma. Throat with erythema, tonsillar erythema. Cervical lymph node enlarged. NECK: Trachea midline. Supple, nontender, no meningeal signs. CARDIOVASCULAR: Heart sounds audible. No murmur appreciated. RESPIRATORY: Clear to auscultation. Breath sounds equal bilaterally. No wheezes , rales, or rhonchi. GASTROINTESTINAL: Abdomen soft, non-tender, nondistended. MUSCULOSKELETAL: Extremities without clubbing, cyanosis, or edema. No joint tenderness, effusion, or edema noted. No calf tenderness. Negative Homans sign bilaterally. NEUROLOGICAL: Awake and alert. Nonfocal. Psych cooperative IV line sites with no evidence of infection. Laboratory Laboratory Tests Test 10/16/17 11:29 10/17/17 04:16 White Blood Count 14.8 12.7 Red Blood Count 2.84 2.75 Hemoglobin 9.3 9.0 Hematocrit 28.1 27.3 Mean Corpuscular Volume 98.8 99.0 Mean Corpuscular Hemoglobin 32.6 32.5 Mean Corpuscular Hemoglobin Concent 33.0 32.8 Red Cell Distribution Width 13.2 13.7 Platelet Count 195 199 Mean Platelet Volume 7.2 8.0 Neutrophils (%) (Auto) 90.0 88.8 Lymphocytes (%) (Auto) 5.4 6.8 Monocytes (%) (Auto) 4.5 4.3 Eosinophils (%) (Auto) 0.0 0.0 Basophils (%) (Auto) 0.1 0.1 Neutrophils # (Auto) 13.3 11.3 Lymphocytes # (Auto) 0.8 0.9 Monocytes # (Auto) 0.7 0.5 Eosinophils # (Auto) 0.0 0.0 Basophils # (Auto) 0.0 0.0 CBC Comment DIFF FINAL DIFF FINAL Differential Comment Prothrombin Time 10.3 Prothromb Time International Ratio 1.0 Activated Partial Thromboplast Time 29.7 Blood Urea Nitrogen 21 Creatinine 0.70 Random Glucose 137 Total Protein 6.5 Albumin 2.7 Calcium Level 8.2 Phosphorus Level 3.0 Magnesium Level 2.2 Alkaline Phosphatase 65 Aspartate Amino Transf (AST/SGOT) 27 Alanine Aminotransferase (ALT/SGPT) 41 Total Bilirubin 0.6 Sodium Level 145 Potassium Level 4.3 Chloride Level 112 Carbon Dioxide Level 24.7 Anion Gap 8 Estimat Glomerular Filtration Rate 115 Lactic Acid Level 1.2 Date/Time Source Procedure Growth Status 5/4/18 02:47 Blood Peripheral Aerobic Blood Culture - Preliminary NO GROWTH IN 1 DAY Resulted 10/16/17 02:47 Blood Peripheral Anaerobic Blood Culture - Preliminary NO GROWTH IN 1 DAY Resulted 10/15/17 20:00 Throat Group A Streptococcus Screen - Final NO GP A BETA STREP ISOLATED. Complete 10/15/17 20:18 Urine Catheterized Urine Urine Culture - Preliminary NO GROWTH IN 24 HOURS. Resulted Result Diagram: 10/17/17 0416 10/17/17 0416 Imaging Last Impressions Neck CT 10/15/17 0000 Signed Impressions: Service Date/Time: October 20:52 - CONCLUSION: 1. 2.5 cm phlegmonous mass or early abscess in the left posterior oropharynx around the tonsillar region. Also focal soft tissue swelling in the hypopharynx on the left side as above. Borderline enlarged upper left cervical lymph nodes. Douglas Oneal MD Assessment and Plan Assessment and Plan Sepsis present on admission. Acute tonsillopharyngitis. Group A strep negative. Prior history of syphilis treated. Hypertension Hyperlipidemia Recommendations: Discontinue Zosyn IV Discontinue clindamycin IV Discontinue Vanco IV Start Unasyn IV If tolerates this regimen and continues to do well okay to discharge on oral Augmentin in a.m. Patient insisted on being discharged today from the ICU. Try to convince the patient as well as the spouse attempted as well to keep him in hospital and prevent signing AGAINST MEDICAL ADVICE. Discussed with Raquel Cadet MD October 17, 2017 11:22
[2017-10-17] MEDS: AMPICILLIN-SULBACTAM INJ 1,500 MG in SODIUM CHLORIDE 0.9% INJ 100 ML IV SCH ×2 (12:37→18:00)
[2017-10-17] MEDS ORDERED: PHARMACY ORDERED LAB ONE (14:45)
[2017-10-17] MEDS ORDERED: ZOLPIDEM TARTRATE 10 MG TAB PO PRN (16:30)
[2017-10-18] VITALS: BP 108/71; PULSE 50; RESP 22; TEMP 98.4; O2SAT 96
[2017-10-18] MEDS: AMPICILLIN-SULBACTAM INJ 1,500 MG in SODIUM CHLORIDE 0.9% INJ 100 ML IV SCH ×2 (00:23→06:19)
[2017-10-18] MEDS: DEXAMETHASONE SOD PHOS 4 MG/ML VIAL IV PUSH SCH ×2 (00:23→06:19)
[2017-10-18 02:00] VITALS: PULSE 40
[2017-10-18 04:00] VITALS: BP 115/67; PULSE 44; RESP 16; TEMP 97.8; O2SAT 94
[2017-10-18] MEDS: CHLORHEXIDINE GLUCONATE 2 % 1 PACK (2 CLOTHS) TOP SCH (04:00)
[2017-10-18 05:57] LABS: HEMATOCRIT 28.4 % (39.0-51.0); HEMOGLOBIN 9.4 GM/DL (13.0-17.0); MEAN CELL VOLUME 99.6 FL (80.0-100.0); MEAN CORPUSCULAR HEMOGLOBIN 32.8 PG (27.0-34.0); MEAN PLATELET VOLUME 8.3 FL (7.0-11.0); PLATELET COUNT 208 TH/MM3 (150-450); RED BLOOD COUNT 2.85 MIL/MM3 (4.50-5.90); RED CELL DISTRIBUTION WIDTH 13.6 % (11.6-17.2); WHITE BLOOD COUNT 8.8 TH/MM3 (4.0-11.0)
[2017-10-18 06:00] VITALS: PULSE 47
[2017-10-18] MEDS: HEPARIN SODIUM - SQ 10,000 UNITS/ML VIAL SQ SCH (06:18)
--- NOTE | 2017-10-18 06:54 | HHI.PR ---
Subjective Remarks Patient seen and examined this morning. Some bradycardia, saturating 94% on nasal cannula. Tolerating his regular diet. States voice is closer to normal. States he takes ibuprofen at home for his arthritis. Wants to know when he can go home. Objective Vital Signs Date Time Temp Pulse Resp B/P (MAP) Pulse Ox O2 Delivery O2 Flow Rate FiO2 10/18/17 04:00 97.8 44 16 115/67 (83) 94 10/18/17 04:00 44 10/18/17 02:00 40 10/18/17 00:00 50 10/18/17 00:00 98.4 50 22 108/71 (83) 96 10/17/17 22:00 45 10/17/17 20:00 97.9 50 18 114/61 (78) 93 10/17/17 20:00 50 10/17/17 19:30 93 Nasal Cannula 21 10/17/17 18:00 62 10/17/17 16:00 61 10/17/17 16:00 99.0 62 18 138/71 (93) 95 10/17/17 14:00 44 10/17/17 12:00 46 10/17/17 12:00 98.5 46 16 107/66 (80) 93 10/17/17 10:00 62 10/17/17 08:00 98.3 51 19 111/68 (82) 91 10/17/17 08:00 51 10/17/17 07:28 96 Nasal Cannula 2.00 I/O 10/17/17 10/17/17 10/17/17 10/18/17 10/18/17 10/18/17 07:00 15:00 23:00 07:00 15:00 23:00 Intake Total 870 ml 150 ml 1730 ml 100 ml Output Total 700 ml 600 ml Balance 170 ml 150 ml 1130 ml 100 ml Intake Oral 120 ml 680 ml IV Total 750 ml 150 ml 1050 ml 100 ml Output Urine Total 700 ml 600 ml Stool Total 0 ml # Voids 2 # Bowel Movements 0 Result Diagram: 10/18/17 0346 10/17/17 0416 Imaging Last Impressions Neck CT 10/15/17 0000 Signed Impressions: Service Date/Time: October 20:52 - CONCLUSION: 1. 2.5 cm phlegmonous mass or early abscess in the left posterior oropharynx around the tonsillar region. Also focal soft tissue swelling in the hypopharynx on the left side as above. Borderline enlarged upper left cervical lymph nodes. Douglas Oneal MD Objective Remarks GENERAL: Well-appearing, no acute distress SKIN: Warm and dry. HEAD: Normocephalic. EYES: No scleral icterus. No injection or drainage. ENT : Moist mucous membranes, erythematous and edematous pharynx bilateral tonsillar exudates (improved based on previous exams) NECK: Supple, trachea midline. CARDIOVASCULAR: Regular rate and rhythm without murmurs, gallops, or rubs. RESPIRATORY: Breath sounds equal bilaterally. No accessory muscle use. GASTROINTESTINAL: Abdomen soft, non-tender, nondistended. MUSCULOSKELETAL: No cyanosis, or edema. A/P Problem List: (1) Tonsillar abscess ICD Code: J36 - Peritonsillar abscess Status: Acute (2) Hyperlipidemia ICD Code: E78.5 - Hyperlipidemia Status: Acute (3) HTN (hypertension) ICD Code: I10 - Hypertension Status: Acute Assessment and Plan 57-year-old male patient who presented with several days of sore throat. Found to have peritonsillar abscess of cellulitis. Patient was treated with IV antibiotics. He was seen and evaluated by infectious disease. ENT recommended 48 hours of IV antibiotics in the discharge on p.o. antibiotics with ENT follow- up with Dr. Tobias in 2 weeks. Peritonsillar abscess/cellulitis -Status post broad-spectrum antibiotics Clindamycin , vancomycin,Zosyn -Infectious disease currently has patient on Unasyn--> d/c on Augmentin -Decadron 4 mg every 6 hours-->will continue motrin as an outpatient -Monitor in the ICU for airway -Blood cultures negative to date, urine culture no growth today. Throat culture growing group A strep Coronary artery disease -No acute syndrome -Continue home dose of aspirin GERD -Continue home medication Pepcid Arthritis -Ibuprofen -Ofirmev 1 g every 6 hours 24 hours -MorphineIV for breakthrough pain DVT GI prophylaxis -Navid's and SCDs OOB to chair and bedside commode with assistance -Subcu heparin -Pepcid BID -patient takes at home Discharge Planning Patient medically stable for d/c today. F/U with ENT as outpatient. Mami Orona MD October 18, 2017 06:54
[2017-10-18] MEDS ORDERED: AUGM875T3 PO (06:56)
--- NOTE | 2017-10-18 06:57 | HHI.DCPOC ---
Discharge Care Plan Diagnosis: (1) Tonsillar abscess Goals to Promote Your Health * To prevent worsening of your condition and complications * To maintain your health at the optimal level Directions to Meet Your Goals Take your medications as prescribed Follow your dietary instruction Follow activity as directed Keep your appointments as scheduled Take your immunizations and boosters as scheduled If your symptoms worsen call your PCP, if no PCP go to Urgent Care Center or Emergency Room Smoking is Dangerous to Your Health. Avoid second hand smoke Call the 24-hour hour crisis hotline for domestic abuse at Mami Orona MD October 18, 2017 06:57
[2017-10-18 07:16] VITALS: O2SAT 94
[2017-10-18] MEDS: FAMOTIDINE 20 MG TAB PO SCH (08:28)
[2017-10-18] MEDS: ASPIRIN 81 MG CHEW TAB CHEW SCH (08:28)
[2017-10-18] MEDS: IBUPROFEN 600 MG TAB PO SCH (08:28)
[2017-10-18] MEDS: SODIUM CHLORIDE 0.9% FLUSH 10 ML FLUSH IV FLUSH SCH (08:29)
[2017-10-18] MEDS: DOCUSATE SODIUM 50 MG/SENNA 8.6 MG TAB PO SCH (08:29)
--- NOTE | 2017-10-18 13:42 | HHI.DS ---
Discharge Summary Admission Date October 15, 2017 at 22:09 Discharge Date: October 18, 2017 Admitting Diagnosis Sepsis, tonsillar abscess, hematuria CBC/BMP: 10/18/17 0346 10/17/17 0416 Significant Findings Laboratory Tests Test 10/15/17 20:04 10/15/17 20:18 10/16/17 02:55 10/16/17 11:29 White Blood Count 16.6 TH/MM3 (4.0-11.0) 14.8 TH/MM3 (4.0-11.0) Red Blood Count 3.32 MIL/MM3 (4.50-5.90) 2.84 MIL/MM3 (4.50-5.90) Hemoglobin 10.9 GM/DL (13.0-17.0) 9.3 GM/DL (13.0-17.0) Hematocrit 32.4 % (39.0-51.0) 28.1 % (39.0-51.0) Neutrophils (%) (Auto) 80.9 % (16.0-70.0) 90.0 % (16.0-70.0) Lymphocytes (%) (Auto) 7.4 % (9.0-44.0) 5.4 % (9.0-44.0) Basophils (%) (Auto) 4.3 % (0.0-2.0) Neutrophils # (Auto) 13.5 TH/MM3 (1.8-7.7) 13.3 TH/MM3 (1.8-7.7) Monocytes # (Auto) 1.2 TH/MM3 (0-0.9) Basophils # (Auto) 0.7 TH/MM3 (0-0.2) Activated Partial Thromboplast Time 31.4 SEC (24.3-30.1) Total Bilirubin 1.3 MG/DL (0.2-1.0) Urine Turbidity CLOUDY (CLEAR) Urine Protein 30 mg/dL (NEG-TRACE) Urine Ketones 15 mg/dL (NEG) Urine Occult Blood LARGE (NEG) Urine RBC 100-200 /hpf (0-3) Urine WBC 9-14 /hpf (0-5) Lymphocytes # (Auto) 0.8 TH/MM3 (1.0-4.8) Test 10/17/17 04:16 10/18/17 03:46 White Blood Count 12.7 TH/MM3 (4.0-11.0) Red Blood Count 2.75 MIL/MM3 (4.50-5.90) 2.85 MIL/MM3 (4.50-5.90) Hemoglobin 9.0 GM/DL (13.0-17.0) 9.4 GM/DL (13.0-17.0) Hematocrit 27.3 % (39.0-51.0) 28.4 % (39.0-51.0) Neutrophils (%) (Auto) 88.8 % (16.0-70.0) Lymphocytes (%) (Auto) 6.8 % (9.0-44.0) Neutrophils # (Auto) 11.3 TH/MM3 (1.8-7.7) Lymphocytes # (Auto) 0.9 TH/MM3 (1.0-4.8) Blood Urea Nitrogen 21 MG/DL (7-18) Random Glucose 137 MG/DL (74-106) Albumin 2.7 GM/DL (3.4-5.0) Calcium Level 8.2 MG/DL (8.5-10.1) Chloride Level 112 MEQ/L (98-107) Imaging Last Impressions Neck CT 10/15/17 0000 Signed Impressions: Service Date/Time: October 20:52 - CONCLUSION: 1. 2.5 cm phlegmonous mass or early abscess in the left posterior oropharynx around the tonsillar region. Also focal soft tissue swelling in the hypopharynx on the left side as above. Borderline enlarged upper left cervical lymph nodes. Douglas Oneal MD PE at Discharge GENERAL: Well-appearing, no acute distress SKIN: Warm and dry. HEAD: Normocephalic. EYES: No scleral icterus. No injection or drainage. ENT : Moist mucous membranes, erythematous and edematous pharynx bilateral tonsillar exudates (improved based on previous exams) NECK: Supple, trachea midline. CARDIOVASCULAR: Regular rate and rhythm without murmurs, gallops, or rubs. RESPIRATORY: Breath sounds equal bilaterally. No accessory muscle use. GASTROINTESTINAL: Abdomen soft, non-tender, nondistended. MUSCULOSKELETAL: No cyanosis, or edema. Hospital Course 57-year-old male patient who presented with several days of sore throat. Found to have peritonsillar abscess of cellulitis. Patient was treated with IV antibiotics. He was seen and evaluated by infectious disease. ENT recommended 48 hours of IV antibiotics in the discharge on p.o. antibiotics with ENT follow- up with Dr. Tobias in 2 weeks. By October 18 patient had reached maximum benefit from inpatient hospitalization. D/C home on Augmentin and motrin for the pain. Pt Condition on Discharge: Stable Discharge Disposition: Discharge Home Discharge Instructions DIET: Follow Instructions for: As Tolerated, No Restrictions Activities you can perform: Regular-No Restrictions Follow up Referrals: Ear Nose Throat - [address] Tobias New Medications: Amoxicillin-Clavulanate (Augmentin) 875-125 Mg Tab 1 TAB PO BID for Infection for 10 Days, #20 TAB 0 Refills Continued Medications: Acetaminophen (Tylenol) 325 Mg Tab 650 MG PO TID, TAB 0 Refills Aspirin (Tgt Aspirin) 81 Mg Chw 81 MG CHEW DAILY for heart, #31 EA Famotidine (Famotidine) 10 Mg Tab 10 MG PO BID, #60 TAB 0 Refills Ibuprofen (Ibuprofen) 600 Mg Tab 600 MG PO TID for Arthritis Pain, TAB 0 Refills Mami Orona MD October 18, 2017 13:42
== END 2017-10-18 10:50 | disposition home or self-care (01) | DRG 872 ==
LOC: PHED 18:58 → PHEDA 22:09 → HIME 23:45 → HIMW 10-17 07:35
PROVIDERS: ADMIT Family Medicine; ATTEND Family Medicine
DX: A41.9 Sepsis, unspecified organism (principal); I10 Essential (primary) hypertension; J36 Peritonsillar abscess; I25.2 Old myocardial infarction; K21.9 Gastro-esophageal reflux disease without esophagitis; R31.29 Other microscopic hematuria; E78.5 Hyperlipidemia, unspecified; F17.210 Nicotine dependence, cigarettes, uncomplicated; F17.290 Nicotine dependence, other tobacco product, uncomplicated; H93.13 Tinnitus, bilateral; M19.90 Unspecified osteoarthritis, unspecified site; I25.10 Atherosclerotic heart disease of native coronary artery without angina pectoris; K59.00 Constipation, unspecified; M79.7 Fibromyalgia; Z87.442 Personal history of urinary calculi; Z95.5 Presence of coronary angioplasty implant and graft; Z86.19 Personal history of other infectious and parasitic diseases; Z79.82 Long term (current) use of aspirin; Z90.49 Acquired absence of other specified parts of digestive tract
CPT/HCPCS: 70491; 80053; 81001; 83605; 83735; 84100; 85025; 85027; 85610; 85730; 86308; 87040; 87081; 87086; 87641; 87880; 93005; 94150; 96361; 96365; 96375; J0131; J0295; J1100; J1644; J1885; J2270; J2543; J3370; J7030; J7040; J7050; Q9967